=== PATIENT | female | born 1970 | race Two or more races ===

== ENCOUNTER 2018-07-19 09:01 | Outpatient (CLI) | payer BC ==
--- NOTE | 2018-07-19 09:36 | Diagnostic Imaging Report ---
Indication: Cough Comparison: None 2 views of the chest obtained. Findings: There is a vague, confluent density projected over the left upper lung field likely representing atelectasis. Further evaluation of this suggested. Underlying mass not excluded. Heart size is normal. There is some volume loss which shift of the trachea toward the left side. Right lung is clear. Left lung base appears clear. The bones are unremarkable. IMPRESSION: Left upper lobe atelectasis suspected. Underlying mass either involving the lung or the left hilar region is not excluded. Further evaluation is recommended.
[2018-07-19 09:58] LABS: BASOPHILS % (AUTO) 0.8 % (0.0-2.0); EOSINOPHILS % (AUTO) 3.7 % (0.0-3.0); HEMATOCRIT 30.4 % (37.0-47.0); HEMOGLOBIN 9.3 G/DL (12.0-16.0); LYMPHOCYTES % (AUTO) 15.9 % (20.0-45.0); MEAN CORPUSCULAR VOLUME 77 FL (80-99); MONOCYTES % (AUTO) 9.6 % (1.0-10.0); NEUTROPHILS % (AUTO) 69.9 % (45.0-75.0); PLATELET COUNT 464 K/UL (150-450); RED BLOOD COUNT 3.92 M/UL (4.20-5.40); RED CELL DISTRIBUTION WIDTH 13.9 % (11.6-14.8); WHITE BLOOD COUNT 9.8 K/UL (4.8-10.8)
[2018-07-19 10:21] LABS: ALANINE AMINOTRANSFERASE 17 U/L (12-78); ALBUMIN 3.3 G/DL (3.4-5.0); ALBUMIN/GLOBULIN RATIO 0.7 (1.0-2.7); ALKALINE PHOSPHATASE 107 U/L (46-116); ANION GAP 6 mmol/L (5-15); ASPARTATE AMINO TRANSFERASE 30 U/L (15-37); BILIRUBIN,TOTAL 0.5 MG/DL (0.2-1.0); BLOOD UREA NITROGEN 14 mg/dL (7-18); CALCIUM 9.4 MG/DL (8.5-10.1); CARBON DIOXIDE 29 MMOL/L (21-32); CHLORIDE 101 MMOL/L (98-107); CREATININE 0.7 MG/DL (0.55-1.30); POTASSIUM 3.9 MMOL/L (3.5-5.1); SODIUM 136 MMOL/L (136-145)
--- NOTE | 2018-07-19 20:15 | History and Physical Report ---
DATE OF ADMISSION: 07/19/2018 TIME SEEN: 2 p.m. CONSULTANTS: 1. Miguel Winston M.D. 2. Dr. Delgado CHIEF COMPLAINT: Left lung mass and hemoptysis. BRIEF HISTORY: The patient is a 48-year-old female, who lives at home, came to my office yesterday for the first time complaining of slight shortness of breath and coughing intermittently for about 3 to 4 months occasionally with coughing up blood. The patient with slight short of breath, slightly weak, complaining of some weight loss as well. The patient was sent to [place] to get labs done. Chest x-ray subsequently showed a possible left lung mass. The patient was called back to come back to ER to be admitted. The patient was seen here shortly and CAT scan has been done. The patient in the ER currently, slightly short of breath, slightly weak, awaiting admission. REVIEW OF SYSTEMS: No chest pain. Slight short of breath. No nausea, vomiting, or diarrhea. PAST MEDICAL HISTORY: Nothing. PAST SURGICAL HISTORY: None. MEDICATIONS: Nothing. ALLERGIES: Denies. SOCIAL HISTORY: No smoking. No alcohol. No intravenous drug abuse. FAMILY HISTORY: Noncontributory. PHYSICAL EXAMINATION: GENERAL: Calm in bed, slightly weak, oriented x3, no acute distress. VITAL SIGNS: Temperature is 98 degrees, pulse 86, respirations 23, blood pressure 122/76. CARDIOVASCULAR: No murmur. LUNGS: Distant, poor exchange. ABDOMEN: Bowel sounds positive. Nontender. Nondistended. EXTREMITIES: No cyanosis or edema. NEUROLOGIC: Cranial nerves II through XII are grossly intact. Deep tendon reflexes 2+/4. Muscle strength 4/5. LABORATORY AND DIAGNOSTIC DATA: Hemoglobin 9.1, platelets 457, otherwise CBC is normal. BMP show glucose 133. Troponin 0.00. Albumin 3.3, otherwise BMP is normal. D-dimer is 4.26. INR is 1.1. Urinalysis, urine HCG is negative ASSESSMENT: 1. Left lung mass. 2. Shortness of breath. 3. Hemoptysis. 4. Anemia. 5. Weight loss. PLAN: 1. Admit to medical floor. 2. Pain control. 3. O2 and pulmonary treatment as needed. 4. CBC and BMP in the morning. 5. Dr. Winston and Dr. Kiser to consult. 6. We will continue to follow the patient medically. Martín Vera D.O. DR: Giovanni JOB#: [id number] CC:
== END 2018-07-19 11:01 | disposition home or self-care (01) ==
LOC: LAB 09:01
DX: R04.2 Hemoptysis (principal); R91.1 Solitary pulmonary nodule; R06.02 Shortness of breath; D64.9 Anemia, unspecified; R63.4 Abnormal weight loss
CPT/HCPCS: 36415; 71046; 80053; 85025

== ENCOUNTER 2018-07-19 11:22 | Inpatient (IN) | payer BC ==
[~2018-07-19] VITALS: Ht 172.7 cm; Wt 63.0 kg
[2018-07-19 11:40] VITALS: BP 128/72
--- NOTE | 2018-07-19 11:43 | Emergency Room Report ---
History of Present Illness General Chief Complaint: Dyspnea/Respdistress Source: Patient Present Illness HPI Patient presents with complaints of right-sided upper chest and back pain that has been ongoing off and on for the past 2 months Patient has had increased cough as well Reports that she was initially seen and diagnosed with possible asthma Patient had more acute pain to the right upper chest area today associated with some pleurisy x-ray was obtained and patient is reporting that she was told there was a collapsed lung Patient herself denies any fevers or chills denies any vomiting or diarrhea she has had cough off and on over the past several months Denies any recent travel Allergies: Coded Allergies: No Known Allergies (Unverified , 07/19/18) Patient History Past Medical History: see triage record Pertinent Family History: none Last Menstrual Period: 9-11 Now: No Reviewed Nursing Documentation: PMH: Agreed; PSxH: Agreed Nursing Documentation-PMH Past Medical History: No History, Except For Hx Asthma: Yes Review of Systems All Other Systems: negative except mentioned in HPI Physical Exam Vital Signs Date Time Temp Pulse Resp B/P (MAP) Pulse Ox O2 Delivery O2 Flow Rate FiO2 07/19/18 11:23 98.4 89 18 141/81 99 Room Air 98.4 Sp02 EP Interpretation: reviewed, normal General Appearance: well appearing, no apparent distress Head: normocephalic, atraumatic Eyes: bilateral eye PERRL, bilateral eye EOMI ENT: hearing grossly normal, normal pharynx, TMs + canals normal, uvula midline Neck: full range of motion, supple, no meningismus, no bony tend Respiratory: lungs clear, normal breath sounds, no rhonchi, no respiratory distress, no retraction, no accessory muscle use Cardiovascular #1: normal peripheral pulses, regular rate, rhythm, no edema, no gallop, no JVD, no murmur Gastrointestinal: normal bowel sounds, non tender, soft, no mass, no organomegaly, non-distended, no guarding, no hernia, no pulsatile mass, no rebound Genitourinary: no CVA tenderness Musculoskeletal: normal inspection Neurologic: oriented x3, responsive, finance associate III-XII nml as tested, motor strength/ tone normal, sensory intact Psychiatric: mood/affect normal Skin: normal color, no rash, warm/dry, palpation normal Lymphatic: normal inspection, no adenopathy Medical Decision Making Diagnostic Impression: Primary Impression: Dyspnea Additional Impressions: Atelectasis Lung mass ER Course Given the patient's history and findings X-ray imaging was obtained which does reveal significant left-sided collapse and atelectasis This imaging does require to be followed up by CT Dr. Martín Vera was also an emergency room to see the patient she will require further inpatient care and evaluation Labs Test 07/19/18 11:58 07/19/18 13:07 White Blood Count 10.7 K/UL (4.8-10.8) Red Blood Count 3.85 M/UL (4.20-5.40) Hemoglobin 9.1 G/DL (12.0-16.0) Hematocrit 29.7 % (37.0-47.0) Mean Corpuscular Volume 77 FL (80-99) Mean Corpuscular Hemoglobin 23.6 PG (27.0-31.0) Mean Corpuscular Hemoglobin Concent 30.6 G/DL (32.0-36.0) Red Cell Distribution Width 13.6 % (11.6-14.8) Platelet Count 457 K/UL (150-450) Mean Platelet Volume 5.1 FL (6.5-10.1) Neutrophils (%) (Auto) 79.3 % (45.0-75.0) Lymphocytes (%) (Auto) 9.3 % (20.0-45.0) Monocytes (%) (Auto) 8.2 % (1.0-10.0) Eosinophils (%) (Auto) 2.6 % (0.0-3.0) Basophils (%) (Auto) 0.6 % (0.0-2.0) Prothrombin Time 11.4 SEC (9.30-11.50) Prothromb Time International Ratio 1.1 (0.9-1.1) D-Dimer 4.26 mg/L FEU (0.00-0.49) Sodium Level 140 MMOL/L (136-145) Potassium Level 4.0 MMOL/L (3.5-5.1) Chloride Level 103 MMOL/L (98-107) Carbon Dioxide Level 30 MMOL/L (21-32) Anion Gap 7 mmol/L (5-15) Blood Urea Nitrogen 14 mg/dL (7-18) Creatinine 0.7 MG/DL (0.55-1.30) Estimat Glomerular Filtration Rate > 60 mL/min (>60) Glucose Level 133 MG/DL (74-106) Calcium Level 9.4 MG/DL (8.5-10.1) Total Bilirubin 0.4 MG/DL (0.2-1.0) Aspartate Amino Transf (AST/SGOT) 30 U/L (15-37) Alanine Aminotransferase (ALT/SGPT) 21 U/L (12-78) Alkaline Phosphatase 101 U/L (46-116) Total Creatine Kinase 49 U/L (26-308) Creatine Kinase MB 0.5 NG/ML (0.0-3.6) Creatine Kinase MB Relative Index 1.0 Troponin I 0.000 ng/mL (0.000-0.056) Total Protein 8.0 G/DL (6.4-8.2) Albumin 3.3 G/DL (3.4-5.0) Globulin 4.7 g/dL Albumin/Globulin Ratio 0.7 (1.0-2.7) Urine HCG, Qualitative Negative (NEGATIVE) Rhythm Strip Diag. Results EP Interpretation: yes Rate: 88 Rhythm: NSR, no PVC's, no ectopy Chest X-Ray Diagnostic Results Chest X-Ray Diagnostic Results : Chest X-Ray Ordered: Yes # of Views/Limited/Complete: 1 View Indication: Shortness of Breath Interpretation: no effusion, no pneumothorax, other - Significant left- sided atelectasis Impression: Other - Left-sided atelectasis Electronically Signed by: Zachary Talley DO CT/MRI/US Diagnostic Results CT/MRI/US Diagnostic Results : Impression CT chestIMPRESSION: Suspicion of a central left perihilar pulmonary mass/adenopathy with endobronchial invasion into the left mainstem bronchus, associated with collapse of the left upper lobe bronchus, atelectasis and consolidation of the left upper lobe. The consolidated lung is indistinguishable from the suspected central left hilar mass. An endobronchial mass is seen within the left mainstem bronchus which may be biopsied under bronchoscopy. This is suggested for further evaluation. Evidence of metastatic neoplasm with multiple lesions within the liver. Large right suprarenal mass probably metastatic disease to the right adrenal gland. This is partially imaged. Cystic lesion adjacent to the tail the pancreas, nonspecific. Partially imaged left renal cysts. Last Vital Signs Date Time Temp Pulse Resp B/P (MAP) Pulse Ox O2 Delivery O2 Flow Rate FiO2 07/19/18 11:23 98.4 89 18 141/81 99 Room Air 98.4 Status: improved Disposition: ADMITTED INPATIENT Condition: Serious Zachary Talley DO Jul 19, 2018 11:43
[2018-07-19] MEDS ORDERED: Isovue-370 150ml vial INJ PRN (12:15)
[2018-07-19 12:27] LABS: ANION GAP 7 mmol/L (5-15); BLOOD UREA NITROGEN 14 mg/dL (7-18); CALCIUM 9.4 MG/DL (8.5-10.1); CARBON DIOXIDE 30 MMOL/L (21-32); CHLORIDE 103 MMOL/L (98-107); CREATININE 0.7 MG/DL (0.55-1.30); SODIUM 140 MMOL/L (136-145)
[2018-07-19 12:30] VITALS: BP 107/71
[2018-07-19 12:41] LABS: ALANINE AMINOTRANSFERASE 21 U/L (12-78); ALBUMIN 3.3 G/DL (3.4-5.0); ALBUMIN/GLOBULIN RATIO 0.7 (1.0-2.7); ALKALINE PHOSPHATASE 101 U/L (46-116); ASPARTATE AMINO TRANSFERASE 30 U/L (15-37); BILIRUBIN,TOTAL 0.4 MG/DL (0.2-1.0); CKMB 0.5 NG/ML (0.0-3.6); CREATINE KINASE 49 U/L (26-308)
[2018-07-19 12:43] LABS: BASOPHILS % (AUTO) 0.6 % (0.0-2.0); EOSINOPHILS % (AUTO) 2.6 % (0.0-3.0); HEMATOCRIT 29.7 % (37.0-47.0); HEMOGLOBIN 9.1 G/DL (12.0-16.0); LYMPHOCYTES % (AUTO) 9.3 % (20.0-45.0); MEAN CORPUSCULAR VOLUME 77 FL (80-99); MONOCYTES % (AUTO) 8.2 % (1.0-10.0); NEUTROPHILS % (AUTO) 79.3 % (45.0-75.0); PLATELET COUNT 457 K/UL (150-450); RED BLOOD COUNT 3.85 M/UL (4.20-5.40); RED CELL DISTRIBUTION WIDTH 13.6 % (11.6-14.8); WHITE BLOOD COUNT 10.7 K/UL (4.8-10.8)
[2018-07-19 12:48] LABS: INR 1.1 (0.9-1.1)
[2018-07-19 13:30] VITALS: BP 122/76
--- NOTE | 2018-07-19 13:59 | Diagnostic Imaging Report ---
Indication: Dyspnea Comparison: Earlier today A single view chest radiograph was obtained. Findings: There is no change. There is a vague density projected over the left hemithorax probably atelectasis. There is volume loss with slight shift of the trachea toward the left and slight elevation of left hemidiaphragm. IMPRESSION: Suspected atelectasis of the left upper lobe. Underlying mass not excluded.
[2018-07-19] MEDS ORDERED: Albuterol/Ipratropium 3ml neb HHN PRN (15:45)
[2018-07-19] MEDS ORDERED: Isovue-300 100ml vial INJ PRN (15:45)
[2018-07-19] MEDS ORDERED: Miralax 17gm pkt ORAL PRN (15:45)
[2018-07-19] MEDS ORDERED: LORazepam Inj 2mg/ml 1ml IV PRN (15:45)
[2018-07-19] MEDS ORDERED: Morphine Sulfate 4mg/ml Inj (IV USE ONLY) IVP PRN (15:45)
--- NOTE | 2018-07-19 15:45 | Diagnostic Imaging Report ---
Indication: Abnormal chest x-ray. Cough and shortness of breath Technique: Continuous helical transaxial imaging of the chest was obtained from the thoracic inlet to the upper abdomen during rapid intravenous contrast administration. Arterial phase of enhancement obtained. Coronal 2-D reformats were also obtained and maximum intensity projection images in multiple planes. Study obtained in a Siemens sensation [address] Automatic Exposure Control was utilized. Total Dose length Product (DLP): 756.[address] Dose Index Volume (CTDIvol): 22.41 mGy Comparison: None Findings: There is dense organized consolidation involving the left upper lobe. Branches of the pulmonary artery and branches of the pulmonary vein are demonstrated throughout the consolidated segment. More centrally there is a masslike opacity in the area of the left hilum. There is clearly evidence of an endobronchial mass within the left mainstem bronchus (best demonstrated on series 11 coronal sequence image 39-40). The left upper lobe bronchus is completely collapsed. Suspect endobronchial tumor and adjacent perihilar malignancy which is difficult to distinguish from the organized left upper lobe atelectasis and consolidation. Recommend bronchoscopy as this may provide the diagnosis most readily. There is also suggestion of adenopathy in the pretracheal region of the mediastinum. Would not suggest obtaining percutaneous CT biopsy as it is not possible to distinguish consolidated lung from tumor on this examination. Furthermore, the tumor is probably likely central in the left hilum which is not accessible due to the far distance and presence of hilar vessels. There is a net volume loss with elevation of the left hemidiaphragm and deviation of the trachea/mediastinum/heart toward the left side. There is evidence of metastatic neoplasm involving the liver with multiple fairly large enhancing tumors demonstrated within both lobes. There is a large mass in the suprahilar aspect of the right kidney. The mass is incompletely assessed on this examination and measures about 8 x 4 cm. This may be adenopathy or an adrenal mass, possibly metastatic, involving this region. In terms of the pulmonary artery, there is marked extrinsic compression and consequent narrowing of lobar and segmental branches of the left pulmonary artery trunk extending into both upper and lower lobes. There are no lung nodules identified. There are cystic foci within the left upper quadrant abdomen associated with the visualized part of the kidney. There is also prominent cyst anterior to the tail the pancreas measuring about 5.4 cm. These are all only partially imaged on the current study. The osseous structures are grossly unremarkable. IMPRESSION: Suspicion of a central left perihilar pulmonary mass/adenopathy with endobronchial invasion into the left mainstem bronchus, associated with collapse of the left upper lobe bronchus, atelectasis and consolidation of the left upper lobe. The consolidated lung is indistinguishable from the suspected central left hilar mass. An endobronchial mass is seen within the left mainstem bronchus which may be biopsied under bronchoscopy. This is suggested for further evaluation. Evidence of metastatic neoplasm with multiple lesions within the liver. Large right suprarenal mass probably metastatic disease to the right adrenal gland. This is partially imaged. Cystic lesion adjacent to the tail the pancreas, nonspecific. Partially imaged left renal cysts. Critical value communication. Findings were discussed via telephone with Dr. Grace in the emergency department. At 3:00 PM, 07/19/[address] scanner at [facility] is accredited by the [employer] and the scans are performed using dose optimization techniques as appropriate to a performed exam including Automatic Exposure control.
[2018-07-19] MEDS ORDERED: Vancomycin 1250mg/D5W 250ml IVPB SCH (17:00)
--- NOTE | 2018-07-19 20:15 | History and Physical Report ---
DATE OF ADMISSION: 07/19/2018 TIME SEEN: 2 p.m. CONSULTANTS: 1. Miguel Winston M.D. 2. Dr. Delgado CHIEF COMPLAINT: Left lung mass and hemoptysis. BRIEF HISTORY: The patient is a 48-year-old female, who lives at home, came to my office yesterday for the first time complaining of slight shortness of breath and coughing intermittently for about 3 to 4 months occasionally with coughing up blood. The patient with slight short of breath, slightly weak, complaining of some weight loss as well. The patient was sent to [place] to get labs done. Chest x-ray subsequently showed a possible left lung mass. The patient was called back to come back to ER to be admitted. The patient was seen here shortly and CAT scan has been done. The patient in the ER currently, slightly short of breath, slightly weak, awaiting admission. REVIEW OF SYSTEMS: No chest pain. Slight short of breath. No nausea, vomiting, or diarrhea. PAST MEDICAL HISTORY: Nothing. PAST SURGICAL HISTORY: None. MEDICATIONS: Nothing. ALLERGIES: Denies. SOCIAL HISTORY: No smoking. No alcohol. No intravenous drug abuse. FAMILY HISTORY: Noncontributory. PHYSICAL EXAMINATION: GENERAL: Calm in bed, slightly weak, oriented x3, no acute distress. VITAL SIGNS: Temperature is 98 degrees, pulse 86, respirations 23, blood pressure 122/76. CARDIOVASCULAR: No murmur. LUNGS: Distant, poor exchange. ABDOMEN: Bowel sounds positive. Nontender. Nondistended. EXTREMITIES: No cyanosis or edema. NEUROLOGIC: Cranial nerves II through XII are grossly intact. Deep tendon reflexes 2+/4. Muscle strength 4/5. LABORATORY AND DIAGNOSTIC DATA: Hemoglobin 9.1, platelets 457, otherwise CBC is normal. BMP show glucose 133. Troponin 0.00. Albumin 3.3, otherwise BMP is normal. D-dimer is 4.26. INR is 1.1. Urinalysis, urine HCG is negative ASSESSMENT: 1. Left lung mass. 2. Shortness of breath. 3. Hemoptysis. 4. Anemia. 5. Weight loss. PLAN: 1. Admit to medical floor. 2. Pain control. 3. O2 and pulmonary treatment as needed. 4. CBC and BMP in the morning. 5. Dr. Winston and Dr. Kiser to consult. 6. We will continue to follow the patient medically. Martín Vera D.O. DR: Giovanni JOB#: [id number] CC: JESSICA
[2018-07-19 21:00] VITALS: BP 113/68
[2018-07-19] MEDS ORDERED: Cefepime HCl 2 GM in D5W 110 ML IV SCH (21:00)
[2018-07-19] MEDS: Heparin 5000 units/ml inj SUBQ SCH (21:10)
[2018-07-19] MEDS ORDERED: Vancomycin 1 GM in D5W 275 ML IV SCH (23:00)
[2018-07-20] MEDS ORDERED: Vancomycin 750mg/NS 250ml IVPB SCH (01:00)
[2018-07-20 04:59] VITALS: BP 111/72
[2018-07-20 06:14] LABS: EOSINOPHILS % (AUTO) 4.3 % (0.0-3.0); HEMATOCRIT 28.1 % (37.0-47.0); HEMOGLOBIN 8.8 G/DL (12.0-16.0); MEAN CORPUSCULAR VOLUME 77 FL (80-99); MONOCYTES % (AUTO) 10.7 % (1.0-10.0); PLATELET COUNT 428 K/UL (150-450); RED BLOOD COUNT 3.64 M/UL (4.20-5.40); RED CELL DISTRIBUTION WIDTH 13.5 % (11.6-14.8); WHITE BLOOD COUNT 7.9 K/UL (4.8-10.8)
[2018-07-20 06:27] LABS: ANION GAP 6 mmol/L (5-15); BLOOD UREA NITROGEN 12 mg/dL (7-18); CALCIUM 9.3 MG/DL (8.5-10.1); CARBON DIOXIDE 31 MMOL/L (21-32); CHLORIDE 102 MMOL/L (98-107); CREATININE 0.8 MG/DL (0.55-1.30); POTASSIUM 4.3 MMOL/L (3.5-5.1); SODIUM 138 MMOL/L (136-145)
[2018-07-20 06:32] LABS: ANION GAP 5 mmol/L (5-15); BLOOD UREA NITROGEN 12 mg/dL (7-18); CALCIUM 9.2 MG/DL (8.5-10.1); CARBON DIOXIDE 30 MMOL/L (21-32); CHLORIDE 103 MMOL/L (98-107); CREATININE 0.7 MG/DL (0.55-1.30); PHOSPHORUS 3.8 MG/DL (2.5-4.9); POTASSIUM 4.3 MMOL/L (3.5-5.1); SODIUM 138 MMOL/L (136-145)
[2018-07-20 08:00] VITALS: BP 128/79
--- NOTE | 2018-07-20 08:21 | Consultation ---
History of Present Illness General Date patient seen: Jul 20, 2018 Chief Complaint: Dyspnea/Respdistress Reason for Consultation: PNA Present Illness HPI Ms Mansfield is a 48 yo female with PMHx of possible asthma who presented to the ED on 07/19/18 with CP. The patient reports Right sided CP and back pain x 2 months. Has had some cough (No blood) intermittent for the last few months. She went to another MD and was told that she may have asthma or PNA and was treated at that time. The pain did not resolve and she came to the ED. She reports no fever/chill, N/V/D, Dysuria. She does report feeling tired a lot. ID was consulted for PNA PMHx/PSHx Asthma. Anemia SocHx Travel - [facility] 3 years ago No known TB Exposure Denies E/T/D FamHx Mother HTN Allergies: Coded Allergies: No Known Allergies (Unverified , 07/19/18) Patient History Healthcare decision maker Resuscitation status Full Code Advanced Directive on File Review of Systems All Other Systems: negative except mentioned in HPI Physical Exam Last 24 Hour Vital Signs Date Time Temp Pulse Resp B/P (MAP) Pulse Ox O2 Delivery O2 Flow Rate FiO2 07/20/18 08:02 84 16 Room Air 21 07/20/18 06:54 98.6 07/20/18 04:59 98.6 82 18 111/72 (85) 99 98.6 07/19/18 23:21 Room Air 07/19/18 21:00 99.4 93 18 113/68 (83) 99 99.4 07/19/18 19:45 81 16 Room Air 21 07/19/18 16:15 Room Air 07/19/18 15:20 98.8 78 22 131/82 99 Room Air 07/19/18 13:30 86 23 122/76 100 Room Air 07/19/18 12:30 85 22 107/71 07/19/18 11:40 88 16 128/72 100 Room Air 07/19/18 11:40 89 18 Room Air 07/19/18 11:23 98.4 89 18 141/81 99 Room Air 98.4 Intake and Output 07/19/18 07/20/18 19:00 07:00 Intake Total 290 ml 1060.000 ml Output Total 0 ml Balance 290 ml 1060.000 ml Intake Oral 240 ml 300 ml IV Total 50 ml 760.000 ml Output Urine Total 0 ml # Voids 2 Laboratory Tests Test 07/19/18 11:58 07/19/18 13:07 07/20/18 05:25 White Blood Count 10.7 K/UL (4.8-10.8) 7.9 K/UL (4.8-10.8) Red Blood Count 3.85 M/UL (4.20-5.40) L 3.64 M/UL (4.20-5.40) L Hemoglobin 9.1 G/DL (12.0-16.0) L 8.8 G/DL (12.0-16.0) L Hematocrit 29.7 % (37.0-47.0) L 28.1 % (37.0-47.0) L Mean Corpuscular Volume 77 FL (80-99) L 77 FL (80-99) L Mean Corpuscular Hemoglobin 23.6 PG (27.0-31.0) L 24.1 PG (27.0-31.0) L Mean Corpuscular Hemoglobin Concent 30.6 G/DL (32.0-36.0) L 31.3 G/DL (32.0-36.0) L Red Cell Distribution Width 13.6 % (11.6-14.8) 13.5 % (11.6-14.8) Platelet Count 457 K/UL (150-450) H 428 K/UL (150-450) Mean Platelet Volume 5.1 FL (6.5-10.1) L 5.0 FL (6.5-10.1) L Neutrophils (%) (Auto) 79.3 % (45.0-75.0) H 67.0 % (45.0-75.0) Lymphocytes (%) (Auto) 9.3 % (20.0-45.0) L 17.0 % (20.0-45.0) L Monocytes (%) (Auto) 8.2 % (1.0-10.0) 10.7 % (1.0-10.0) H Eosinophils (%) (Auto) 2.6 % (0.0-3.0) 4.3 % (0.0-3.0) H Basophils (%) (Auto) 0.6 % (0.0-2.0) 1.0 % (0.0-2.0) Prothrombin Time 11.4 SEC (9.30-11.50) Prothromb Time International Ratio 1.1 (0.9-1.1) D-Dimer 4.26 mg/L FEU (0.00-0.49) H Sodium Level 140 MMOL/L (136-145) 138 MMOL/L (136-145) Potassium Level 4.0 MMOL/L (3.5-5.1) 4.3 MMOL/L (3.5-5.1) Chloride Level 103 MMOL/L (98-107) 103 MMOL/L (98-107) Carbon Dioxide Level 30 MMOL/L (21-32) 30 MMOL/L (21-32) Anion Gap 7 mmol/L (5-15) 5 mmol/L (5-15) Blood Urea Nitrogen 14 mg/dL (7-18) 12 mg/dL (7-18) Creatinine 0.7 MG/DL (0.55-1.30) 0.7 MG/DL (0.55-1.30) Estimat Glomerular Filtration Rate > 60 mL/min (>60) > 60 mL/min (>60) Glucose Level 133 MG/DL (74-106) H 93 MG/DL (74-106) Calcium Level 9.4 MG/DL (8.5-10.1) 9.2 MG/DL (8.5-10.1) Total Bilirubin 0.4 MG/DL (0.2-1.0) Aspartate Amino Transf (AST/SGOT) 30 U/L (15-37) Alanine Aminotransferase (ALT/SGPT) 21 U/L (12-78) Alkaline Phosphatase 101 U/L (46-116) Total Creatine Kinase 49 U/L (26-308) Creatine Kinase MB 0.5 NG/ML (0.0-3.6) Creatine Kinase MB Relative Index 1.0 Troponin I 0.000 ng/mL (0.000-0.056) Total Protein 8.0 G/DL (6.4-8.2) Albumin 3.3 G/DL (3.4-5.0) L 3.0 G/DL (3.4-5.0) L Globulin 4.7 g/dL Albumin/Globulin Ratio 0.7 (1.0-2.7) L Urine HCG, Qualitative Negative (NEGATIVE) Phosphorus Level 3.8 MG/DL (2.5-4.9) Height (Feet): 5 Height (Inches): 8.00 Weight (Pounds): 140 Medications Current Medications Medications (Trade) Dose Ordered Sig/Madelyn Route PRN Reason Start Time Stop Time Status Last Admin Dose Admin Acetaminophen (Tylenol) 650 mg Q4H PRN ORAL FEVER 07/19/18 15:45 08/18/18 15:44 07/20/18 06:24 Albuterol/ Ipratropium (Albuterol/ Ipratropium) 3 ml Q4H PRN HHN Shortness of Breath 07/19/18 15:45 07/24/18 15:44 Cefepime HCl 2 gm/ Dextrose 110 ml @ 220 mls/hr EVERY 12 HOURS IV 07/19/18 21:00 07/26/18 20:59 07/19/18 21:10 Dextrose (Dextrose 50%) 25 ml Q1H PRN IV Hypoglycemia 07/19/18 15:45 08/18/18 15:44 Dextrose (Dextrose 50%) 50 ml Q1H PRN IV Hypoglycemia 07/19/18 16:00 08/18/18 15:59 Heparin Sodium (Porcine) (Heparin 5000 units/ml) 5,000 units EVERY 12 HOURS SUBQ 07/19/18 21:00 08/18/18 20:59 07/19/18 21:10 Lorazepam (Ativan 2mg/ml 1ml) 2 mg Q2H PRN IV For Anxiety 07/19/18 15:45 07/26/18 15:44 Morphine Sulfate (Morphine Sulfate) 4 mg Q4H PRN IVP Severe Pain (Pain Scale 7-10) 07/19/18 15:45 07/26/18 15:44 Ondansetron HCl (Zofran) 4 mg Q6H PRN IVP Nausea & Vomiting 07/19/18 15:45 08/18/18 15:44 Polyethylene Glycol (Miralax) 17 gm DAILYPRN PRN ORAL Constipation 07/19/18 15:45 08/18/18 15:44 Sodium Chloride 1,000 ml @ 50 mls/hr Q20H IV 07/19/18 15:42 08/18/18 15:41 07/19/18 17:09 Vancomycin HCl (Vanco rx to dose) 1 ea DAILY PRN MISC per rx protocol 07/19/18 16:00 08/18/18 15:59 Vancomycin/Sodium Chloride 250 ml @ 166.667 mls/hr Q8H IVPB 07/20/18 01:00 07/25/18 00:59 07/20/18 01:08 Objective Narrative Gen: NAD, well appearing, alert HEENT: NCAT, MMM, EOMI, PERRL, No Oral lesion, no scleral icterus NECK: full range of motion, supple, no meningismus, No LAD, No JVD LUNGS: CTAB, No W/C, No Accessory muscle use CARDS: RRR, S1, S2, No M/R/G ABD: Soft, NT, ND, No R/G, + BS, No HSM, No Masses : Deferred Ext: C/C/E, Pulses 2+ B/L (DP, Rad), Right foot with healing ulceration and minimal surrounding erythema. NEURO: A/O x 4, Strength and Sensation Grossly intact PSYCH: mood/affect normal SKIN: warm/dry, No rashes, Assessment/Plan Assessment/Plan Lung Nodules and consolidation Most probably Cancer. May have some component of post obstructive PNA but not likely Findings no consistent with TB or other infection 07/19/18 CTA Chest - Suspicion of a central left perihilar pulmonary mass/ adenopathy with endobronchial invasion into the left mainstem bronchus, associated with collapse of the left uppe lobe bronchus, atelectasis and consolidation of the left upper lobe. Evidence of metastatic neoplasm with multiple lesions within the liver. Large right suprarenal mass probably metastatic disease to the right adrenal gland. Hx of asthma Anemia PLAN: - D/C Vancomycin and Cefepime - Start Azithromycin and Ceftriaxone for possible obstructive PNA - Needs Bx of lesion to evaluate for malignancy vs less likely infectious process. - Supportive care Thank you for this consult. We will continue to follow the patient during this hospitalization. Rodo Adkins MD Jul 20, 2018 08:21
[2018-07-20] MEDS ORDERED: Azithromycin 250mg tab ORAL SCH (08:29)
[2018-07-20] MEDS: Heparin 5000 units/ml inj SUBQ SCH ×2 (09:16→21:04)
--- NOTE | 2018-07-20 09:16 | General Progress Note ---
Assessment/Plan Problem List: (1) Lung mass ICD Codes: R91.8 - Other nonspecific abnormal finding of lung field SNOMED: 068019804 (2) Anemia ICD Codes: D64.9 - Anemia, unspecified SNOMED: 633968429 (3) SOB (shortness of breath) ICD Codes: R06.02 - Shortness of breath SNOMED: 206220416 (4) Weak ICD Codes: R53.1 - Weakness SNOMED: 47298332 (5) Hemoptysis ICD Codes: R04.2 - Hemoptysis SNOMED: 39725929 (6) Atelectasis ICD Codes: J98.11 - Atelectasis SNOMED: 60127665 (7) Dyspnea ICD Codes: R06.00 - Dyspnea, unspecified SNOMED: 232386718 Status: unchanged Assessment/Plan o2 pulm tx diet f/u cbc bmp am heme pulm f/u Subjective Constitutional: Reports: weakness Respiratory: Reports: shortness of breath Allergies: Coded Allergies: No Known Allergies (Unverified , 07/19/18) All Systems: reviewed and negative except above Subjective calm in bed Objective Last 24 Hour Vital Signs Date Time Temp Pulse Resp B/P (MAP) Pulse Ox O2 Delivery O2 Flow Rate FiO2 07/20/18 08:02 84 16 Room Air 21 07/20/18 08:00 98.0 76 20 128/79 (95) 99 98.0 07/20/18 06:54 98.6 07/20/18 04:59 98.6 82 18 111/72 (85) 99 98.6 07/19/18 23:21 Room Air 07/19/18 21:00 99.4 93 18 113/68 (83) 99 99.4 07/19/18 19:45 81 16 Room Air 21 07/19/18 16:15 Room Air 07/19/18 15:20 98.8 78 22 131/82 99 Room Air 07/19/18 13:30 86 23 122/76 100 Room Air 07/19/18 12:30 85 22 107/71 07/19/18 11:40 88 16 128/72 100 Room Air 07/19/18 11:40 89 18 Room Air 07/19/18 11:23 98.4 89 18 141/81 99 Room Air 98.4 Intake and Output 07/19/18 07/20/18 19:00 07:00 Intake Total 290 ml 1060.000 ml Output Total 0 ml Balance 290 ml 1060.000 ml Intake Oral 240 ml 300 ml IV Total 50 ml 760.000 ml Output Urine Total 0 ml # Voids 2 Laboratory Tests 07/19/18 11:58: White Blood Count 10.7, Red Blood Count 3.85L, Hemoglobin 9.1L, Hematocrit 29.7L , Mean Corpuscular Volume 77L, Mean Corpuscular Hemoglobin 23.6L, Mean Corpuscular Hemoglobin Concent 30.6L, Red Cell Distribution Width 13.6, Platelet Count 457H, Mean Platelet Volume 5.1L, Neutrophils (%) (Auto) 79.3H, Lymphocytes (%) (Auto) 9.3L, Monocytes (%) (Auto) 8.2, Eosinophils (%) (Auto) 2.6, Basophils (%) (Auto) 0.6, Prothrombin Time 11.4, Prothromb Time International Ratio 1.1, D-Dimer 4.26H, Sodium Level 140, Potassium Level 4.0, Chloride Level 103, Carbon Dioxide Level 30, Anion Gap 7, Blood Urea Nitrogen 14 , Creatinine 0.7, Estimat Glomerular Filtration Rate > 60, Glucose Level 133H, Calcium Level 9.4, Total Bilirubin 0.4, Aspartate Amino Transf (AST/SGOT) 30, Alanine Aminotransferase (ALT/SGPT) 21, Alkaline Phosphatase 101, Total Creatine Kinase 49, Creatine Kinase MB 0.5, Creatine Kinase MB Relative Index 1.0, Troponin I 0.000, Total Protein 8.0, Albumin 3.3L, Globulin 4.7, Albumin/ Globulin Ratio 0.7L 07/19/18 13:07: Urine HCG, Qualitative Negative 07/20/18 05:25: White Blood Count 7.9, Red Blood Count 3.64L, Hemoglobin 8.8L, Hematocrit 28.1L , Mean Corpuscular Volume 77L, Mean Corpuscular Hemoglobin 24.1L, Mean Corpuscular Hemoglobin Concent 31.3L, Red Cell Distribution Width 13.5, Platelet Count 428, Mean Platelet Volume 5.0L, Neutrophils (%) (Auto) 67.0, Lymphocytes (%) (Auto) 17.0L, Monocytes (%) (Auto) 10.7H, Eosinophils (%) (Auto ) 4.3H, Basophils (%) (Auto) 1.0, Sodium Level 138, Potassium Level 4.3, Chloride Level 103, Carbon Dioxide Level 30, Anion Gap 5, Blood Urea Nitrogen 12 , Creatinine 0.7, Estimat Glomerular Filtration Rate > 60, Glucose Level 93, Calcium Level 9.2, Albumin 3.0L, Phosphorus Level 3.8 Height (Feet): 5 Height (Inches): 8.00 Weight (Pounds): 140 General Appearance: alert EENT: normal ENT inspection Neck: normal alignment Cardiovascular: normal peripheral pulses, normal rate, regular rhythm Respiratory/Chest: chest wall non-tender, decreased breath sounds Abdomen: normal bowel sounds, non tender, soft Extremities: normal range of motion Edema: no edema noted Arm (L), no edema noted Arm (R), no edema noted Leg (L), no edema noted Leg (R), no edema noted Pedal (L), no edema noted Pedal (R), no edema noted Generalized Neurologic: responsive, motor weakness Skin: normal pigmentation, warm/dry Martín Vera DO Jul 20, 2018 09:16
[2018-07-20] MEDS: cefTRIAXone 1 GM in D5W 55 ML IVPB SCH (10:00)
[2018-07-20] MEDS ORDERED: Promethazine/Codeine 5ml UD ORAL PRN (11:45)
[2018-07-20] MEDS ORDERED: Lidocaine 1% Plain 30 ml INJ PRN (11:45)
--- NOTE | 2018-07-20 11:49 | Consultation ---
History of Present Illness General Date patient seen: Jul 20, 2018 Time patient seen: 10:00 Chief Complaint: Dyspnea/Respdistress Referring physician: dr Vera Reason for Consultation: lung mass Present Illness HPI 48 y/old female with history of intermittent asthma and anemia , presented to emergency department with complaint of right-sided chest pain and back pain for last 2 months. Patient reported cough with expectoration of white colored sputum and occasional specks of blood. Chest pain associated with cough and radiates to the back. She denied fever and chills. She denied abdominal pain, blood in stool, n/v/diarrhea. No history of smoking. Upon evaluation laboratory workup revealed no leukocytosis, hemoglobin 9.1 hematocrit 29.7. Troponin negative. EKG revealed normal sinus rhythm, no acute ischemic changes, CXR with suspected atelectasis of the left upper lobe. Underlying mass was not excluded. Subsequently CT of the chest was done and revealed suspicion of a central left perihilar pulmonary mass/adenopathy with endobronchial invasion into the left mainstem bronchus, associated with collapse of the left upper lobe bronchus, atelectasis and consolidation of the left upper lobe. The consolidated lung is indistinguishable from the suspected central left hilar mass. Endobronchial mass seen within the left mainstem bronchus which may be biopsied under bronchoscopy. . Evidence of metastatic neoplasm with multiple lesions within the liver. Large right suprarenal mass probably metastatic disease to the right adrenal gland. Cystic lesion adjacent to the tail the pancreas, nonspecific. Patient was admitted for further workup Allergies: Coded Allergies: No Known Allergies (Unverified , 07/19/18) Patient History Healthcare decision maker Resuscitation status Full Code Advanced Directive on File Review of Systems Constitutional: Reports: weakness Eye: Reports: no symptoms ENT: Reports: no symptoms Respiratory: Reports: see HPI Cardiovascular: Reports: chest pain - R sided chest pain with cough Gastrointestinal: Reports: no symptoms Genitourinary: Reports: no symptoms Skin: Reports: no symptoms Psychiatric: Reports: no symptoms Neurological: Reports: no symptoms Endocrine: Reports: no symptoms Hematologic/Lymphatic: Reports: anemia Physical Exam General Appearance: no apparent distress, other - A/A/O x 3 female in no apparemt distress Lines, tubes and drains: peripheral HEENT: normocephalic, atraumatic, anicteric Neck: non-tender, supple Respiratory/Chest: no respiratory distress, expiratory wheezing - anterior: upper lobes bolaterally, posterior -throughout Cardiovascular/Chest: normal rate, no JVD Abdomen: normal bowel sounds, non tender, soft Extremities: normal range of motion, non-tender 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, no motor/sensory deficits, alert Musculoskeletal: normal muscle bulk Last 24 Hour Vital Signs Date Time Temp Pulse Resp B/P (MAP) Pulse Ox O2 Delivery O2 Flow Rate FiO2 07/20/18 09:00 Room Air 07/20/18 08:02 84 16 Room Air 21 07/20/18 08:00 98.0 76 20 128/79 (95) 99 98.0 07/20/18 06:54 98.6 07/20/18 04:59 98.6 82 18 111/72 (85) 99 98.6 07/19/18 23:21 Room Air 07/19/18 21:00 99.4 93 18 113/68 (83) 99 99.4 07/19/18 19:45 81 16 Room Air 07/19/18 16:15 Room Air 07/19/18 15:20 98.8 78 22 131/82 99 Room Air 07/19/18 13:30 86 23 122/76 100 Room Air 07/19/18 12:30 85 22 107/71 Intake and Output 07/19/18 07/20/18 19:00 07:00 Intake Total 290 ml 1110.000 ml Output Total 0 ml Balance 290 ml 1110.000 ml Intake Oral 240 ml 300 ml IV Total 50 ml 810.000 ml Output Urine Total 0 ml # Voids 2 Laboratory Tests Test 07/19/18 11:58 07/19/18 13:07 07/20/18 05:25 White Blood Count 10.7 K/UL (4.8-10.8) 7.9 K/UL (4.8-10.8) Red Blood Count 3.85 M/UL (4.20-5.40) L 3.64 M/UL (4.20-5.40) L Hemoglobin 9.1 G/DL (12.0-16.0) L 8.8 G/DL (12.0-16.0) L Hematocrit 29.7 % (37.0-47.0) L 28.1 % (37.0-47.0) L Mean Corpuscular Volume 77 FL (80-99) L 77 FL (80-99) L Mean Corpuscular Hemoglobin 23.6 PG (27.0-31.0) L 24.1 PG (27.0-31.0) L Mean Corpuscular Hemoglobin Concent 30.6 G/DL (32.0-36.0) L 31.3 G/DL (32.0-36.0) L Red Cell Distribution Width 13.6 % (11.6-14.8) 13.5 % (11.6-14.8) Platelet Count 457 K/UL (150-450) H 428 K/UL (150-450) Mean Platelet Volume 5.1 FL (6.5-10.1) L 5.0 FL (6.5-10.1) L Neutrophils (%) (Auto) 79.3 % (45.0-75.0) H 67.0 % (45.0-75.0) Lymphocytes (%) (Auto) 9.3 % (20.0-45.0) L 17.0 % (20.0-45.0) L Monocytes (%) (Auto) 8.2 % (1.0-10.0) 10.7 % (1.0-10.0) H Eosinophils (%) (Auto) 2.6 % (0.0-3.0) 4.3 % (0.0-3.0) H Basophils (%) (Auto) 0.6 % (0.0-2.0) 1.0 % (0.0-2.0) Prothrombin Time 11.4 SEC (9.30-11.50) Prothromb Time International Ratio 1.1 (0.9-1.1) D-Dimer 4.26 mg/L FEU (0.00-0.49) H Sodium Level 140 MMOL/L (136-145) 138 MMOL/L (136-145) Potassium Level 4.0 MMOL/L (3.5-5.1) 4.3 MMOL/L (3.5-5.1) Chloride Level 103 MMOL/L (98-107) 103 MMOL/L (98-107) Carbon Dioxide Level 30 MMOL/L (21-32) 30 MMOL/L (21-32) Anion Gap 7 mmol/L (5-15) 5 mmol/L (5-15) Blood Urea Nitrogen 14 mg/dL (7-18) 12 mg/dL (7-18) Creatinine 0.7 MG/DL (0.55-1.30) 0.7 MG/DL (0.55-1.30) Estimat Glomerular Filtration Rate > 60 mL/min (>60) > 60 mL/min (>60) Glucose Level 133 MG/DL (74-106) H 93 MG/DL (74-106) Calcium Level 9.4 MG/DL (8.5-10.1) 9.2 MG/DL (8.5-10.1) Total Bilirubin 0.4 MG/DL (0.2-1.0) Aspartate Amino Transf (AST/SGOT) 30 U/L (15-37) Alanine Aminotransferase (ALT/SGPT) 21 U/L (12-78) Alkaline Phosphatase 101 U/L (46-116) Total Creatine Kinase 49 U/L (26-308) Creatine Kinase MB 0.5 NG/ML (0.0-3.6) Creatine Kinase MB Relative Index 1.0 Troponin I 0.000 ng/mL (0.000-0.056) Total Protein 8.0 G/DL (6.4-8.2) Albumin 3.3 G/DL (3.4-5.0) L 3.0 G/DL (3.4-5.0) L Globulin 4.7 g/dL Albumin/Globulin Ratio 0.7 (1.0-2.7) L Urine HCG, Qualitative Negative (NEGATIVE) Phosphorus Level 3.8 MG/DL (2.5-4.9) Height (Feet): 5 Height (Inches): 8.00 Weight (Pounds): 140 Medications Current Medications Medications (Trade) Dose Ordered Sig/Madelyn Route PRN Reason Start Time Stop Time Status Last Admin Dose Admin Acetaminophen (Tylenol) 650 mg Q4H PRN ORAL FEVER 07/19/18 15:45 08/18/18 15:44 07/20/18 06:24 Albuterol/ Ipratropium (Albuterol/ Ipratropium) 3 ml Q4H PRN HHN Shortness of Breath 07/19/18 15:45 07/24/18 15:44 Azithromycin (Zithromax) 250 mg DAILY ORAL 07/21/18 09:00 07/25/18 08:59 Ceftriaxone Sodium 1 gm/ Dextrose 55 ml @ 110 mls/hr Q24H IVPB 07/20/18 09:00 07/25/18 08:59 07/20/18 10:00 Dextrose (Dextrose 50%) 25 ml Q1H PRN IV Hypoglycemia 07/19/18 15:45 08/18/18 15:44 Dextrose (Dextrose 50%) 50 ml Q1H PRN IV Hypoglycemia 07/19/18 16:00 08/18/18 15:59 Heparin Sodium (Porcine) (Heparin 5000 units/ml) 5,000 units EVERY 12 HOURS SUBQ 07/19/18 21:00 08/18/18 20:59 07/20/18 09:16 Lorazepam (Ativan 2mg/ml 1ml) 2 mg Q2H PRN IV For Anxiety 07/19/18 15:45 07/26/18 15:44 Morphine Sulfate (Morphine Sulfate) 4 mg Q4H PRN IVP Severe Pain (Pain Scale 7-10) 07/19/18 15:45 07/26/18 15:44 Ondansetron HCl (Zofran) 4 mg Q6H PRN IVP Nausea & Vomiting 07/19/18 15:45 08/18/18 15:44 Polyethylene Glycol (Miralax) 17 gm DAILYPRN PRN ORAL Constipation 07/19/18 15:45 08/18/18 15:44 Sodium Chloride 1,000 ml @ 50 mls/hr Q20H IV 07/19/18 15:42 08/18/18 15:41 07/19/18 17:09 Assessment/Plan Status Narrative ASSESSMENT Left perihilar lung mass , probably malignant with evidence of liver and adrenal gland metastasis Possible obstructive pneumonia Pleuritic chest pain Asthma Anemia Positive D-dimer PLAN OF CARE Med Surg floor O2 to keep pulse ox above 92% pulmonary toilet with bronchodilator ATC + PRN add HHN with inhaled steroids/Budesonide bid empiric antibiotics for possible obstructive PNA ID follows sputum culture antitussive prn possible obstructive pneumonia CT-guided biopsy of lung mass Cancer tumor marker CEA and AFP consider oncology eval- per PMD discretion monitor H&H with goal to keep hemoglobin above 7, anemia w/up, stool OB venous duplex BLE D dimer could be elevated due to malignancy pain management DVT prophylaxis supportive care case discussed and evaluated by supervising physician Carola Warren NP Jul 20, 2018 11:49
[2018-07-20 12:00] VITALS: BP 120/81
[2018-07-20] MEDS: Albuterol/Ipratropium 3ml neb HHN SCH ×2 (12:52→19:23)
[2018-07-20 16:00] VITALS: BP 121/84
--- NOTE | 2018-07-20 16:49 | Consultation ---
Consult Note Consult Note Oncology Consult Date patient seen: Jul 20, 2018 Chief Complaint: Dyspnea/Respdistress Referring physician: dr Vera Reason for Consultation: lung mass stage iv likely lung cancer HPI 48 y/old female with history of intermittent asthma and anemia , presented to emergency department with complaint of right-sided chest pain and back pain for last 2 months. Patient reported cough with expectoration of white colored sputum and occasional specks of blood. Chest pain associated with cough and radiates to the back. She denied fever and chills. She denied abdominal pain, blood in stool, n/v/diarrhea. No history of smoking. Upon evaluation laboratory workup revealed no leukocytosis, hemoglobin 9.1 hematocrit 29.7. CXR with suspected atelectasis of the left upper lobe. Underlying mass was not excluded. Subsequently CT of the chest was done and revealed suspicion of a central left perihilar pulmonary mass/adenopathy with endobronchial invasion into the left mainstem bronchus, associated with collapse of the left upper lobe bronchus, atelectasis and consolidation of the left upper lobe. The consolidated lung is indistinguishable from the suspected central left hilar mass. Endobronchial mass seen within the left mainstem bronchus which may be biopsied under bronchoscopy. . Evidence of metastatic neoplasm with multiple lesions within the liver. Large right suprarenal mass probably metastatic disease to the right adrenal gland. Cystic lesion adjacent to the tail the pancreas, nonspecific. Patient was admitted for further workup. Oncology consulted for further eval. Allergies: Coded Allergies: No Known Allergies (Unverified , 07/19/18) Patient History Healthcare decision maker Resuscitation status Full Code Advanced Directive on File Review of Systems Constitutional: Reports: weakness Eye: Reports: no symptoms ENT: Reports: no symptoms Respiratory: Reports: see HPI Cardiovascular: Reports: chest pain - R sided chest pain with cough Gastrointestinal: Reports: no symptoms Genitourinary: Reports: no symptoms Skin: Reports: no symptoms Psychiatric: Reports: no symptoms Neurological: Reports: no symptoms Endocrine: Reports: no symptoms Hematologic/Lymphatic: Reports: anemia Physical Exam General Appearance: no apparent distress Lines, tubes and drains: peripheral HEENT: normocephalic, atraumati Neck: non-tender, supple Respiratory/Chest: no respiratory distress anterior: upper lobes bolaterally, posterior -throughout Cardiovascular/Chest: normal rate, no JVD Abdomen: normal bowel sounds Extremities: normal range of motion 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 Musculoskeletal: normal muscle bulk Last 24 Hour Vital Signs Date Time Temp Pulse Resp B/P (MAP) Pulse Ox O2 Delivery O2 Flow Rate FiO2 07/20/18 09:00 Room Air 07/20/18 08:02 84 16 Room Air 21 07/20/18 08:00 98.0 76 20 128/79 (95) 99 98.0 07/20/18 06:54 98.6 07/20/18 04:59 98.6 82 18 111/72 (85) 99 98.6 07/19/18 23:21 Room Air 07/19/18 21:00 99.4 93 18 113/68 (83) 99 99.4 07/19/18 19:45 81 16 Room Air 07/19/18 16:15 Room Air 07/19/18 15:20 98.8 78 22 131/82 99 Room Air 07/19/18 13:30 86 23 122/76 100 Room Air 07/19/18 12:30 85 22 107/71 Intake and Output 07/19/18 07/20/18 19:00 07:00 Intake Total 290 ml 1110.000 ml Output Total 0 ml Balance 290 ml 1110.000 ml Intake Oral 240 ml 300 ml IV Total 50 ml 810.000 ml Output Urine Total 0 ml # Voids 2 Laboratory Tests Test 07/19/18 11:58 07/19/18 13:07 07/20/18 05:25 White Blood Count 10.7 K/UL (4.8-10.8) 7.9 K/UL (4.8-10.8) Red Blood Count 3.85 M/UL (4.20-5.40) L 3.64 M/UL (4.20-5.40) L Hemoglobin 9.1 G/DL (12.0-16.0) L 8.8 G/DL (12.0-16.0) L Hematocrit 29.7 % (37.0-47.0) L 28.1 % (37.0-47.0) L Mean Corpuscular Volume 77 FL (80-99) L 77 FL (80-99) L Mean Corpuscular Hemoglobin 23.6 PG (27.0-31.0) L 24.1 PG (27.0-31.0) L Mean Corpuscular Hemoglobin Concent 30.6 G/DL (32.0-36.0) L 31.3 G/DL (32.0-36.0) L Red Cell Distribution Width 13.6 % (11.6-14.8) 13.5 % (11.6-14.8) Platelet Count 457 K/UL (150-450) H 428 K/UL (150-450) Mean Platelet Volume 5.1 FL (6.5-10.1) L 5.0 FL (6.5-10.1) L Neutrophils (%) (Auto) 79.3 % (45.0-75.0) H 67.0 % (45.0-75.0) Lymphocytes (%) (Auto) 9.3 % (20.0-45.0) L 17.0 % (20.0-45.0) L Monocytes (%) (Auto) 8.2 % (1.0-10.0) 10.7 % (1.0-10.0) H Eosinophils (%) (Auto) 2.6 % (0.0-3.0) 4.3 % (0.0-3.0) H Basophils (%) (Auto) 0.6 % (0.0-2.0) 1.0 % (0.0-2.0) Prothrombin Time 11.4 SEC (9.30-11.50) Prothromb Time International Ratio 1.1 (0.9-1.1) D-Dimer 4.26 mg/L FEU (0.00-0.49) H Sodium Level 140 MMOL/L (136-145) 138 MMOL/L (136-145) Potassium Level 4.0 MMOL/L (3.5-5.1) 4.3 MMOL/L (3.5-5.1) Chloride Level 103 MMOL/L (98-107) 103 MMOL/L (98-107) Carbon Dioxide Level 30 MMOL/L (21-32) 30 MMOL/L (21-32) Anion Gap 7 mmol/L (5-15) 5 mmol/L (5-15) Blood Urea Nitrogen 14 mg/dL (7-18) 12 mg/dL (7-18) Creatinine 0.7 MG/DL (0.55-1.30) 0.7 MG/DL (0.55-1.30) Estimat Glomerular Filtration Rate > 60 mL/min (>60) > 60 mL/min (>60) Glucose Level 133 MG/DL (74-106) H 93 MG/DL (74-106) Calcium Level 9.4 MG/DL (8.5-10.1) 9.2 MG/DL (8.5-10.1) Total Bilirubin 0.4 MG/DL (0.2-1.0) Aspartate Amino Transf (AST/SGOT) 30 U/L (15-37) Alanine Aminotransferase (ALT/SGPT) 21 U/L (12-78) Alkaline Phosphatase 101 U/L (46-116) Total Creatine Kinase 49 U/L (26-308) Creatine Kinase MB 0.5 NG/ML (0.0-3.6) Creatine Kinase MB Relative Index 1.0 Troponin I 0.000 ng/mL (0.000-0.056) Total Protein 8.0 G/DL (6.4-8.2) Albumin 3.3 G/DL (3.4-5.0) L 3.0 G/DL (3.4-5.0) L Globulin 4.7 g/dL Albumin/Globulin Ratio 0.7 (1.0-2.7) L Urine HCG, Qualitative Negative (NEGATIVE) Phosphorus Level 3.8 MG/DL (2.5-4.9) Current Medications Medications (Trade) Dose Ordered Sig/Madelyn Route PRN Reason Start Time Stop Time Status Last Admin Dose Admin Acetaminophen (Tylenol) 650 mg Q4H PRN ORAL FEVER 07/19/18 15:45 08/18/18 15:44 07/20/18 06:24 Albuterol/ Ipratropium (Albuterol/ Ipratropium) 3 ml Q4H PRN HHN Shortness of Breath 07/19/18 15:45 07/24/18 15:44 Azithromycin (Zithromax) 250 mg DAILY ORAL 07/21/18 09:00 07/25/18 08:59 Ceftriaxone Sodium 1 gm/ Dextrose 55 ml @ 110 mls/hr Q24H IVPB 07/20/18 09:00 07/25/18 08:59 07/20/18 10:00 Dextrose (Dextrose 50%) 25 ml Q1H PRN IV Hypoglycemia 07/19/18 15:45 08/18/18 15:44 Dextrose (Dextrose 50%) 50 ml Q1H PRN IV Hypoglycemia 07/19/18 16:00 08/18/18 15:59 Heparin Sodium (Porcine) (Heparin 5000 units/ml) 5,000 units EVERY 12 HOURS SUBQ 07/19/18 21:00 08/18/18 20:59 07/20/18 09:16 Lorazepam (Ativan 2mg/ml 1ml) 2 mg Q2H PRN IV For Anxiety 07/19/18 15:45 07/26/18 15:44 Morphine Sulfate (Morphine Sulfate) 4 mg Q4H PRN IVP Severe Pain (Pain Scale 7-10) 07/19/18 15:45 07/26/18 15:44 Ondansetron HCl (Zofran) 4 mg Q6H PRN IVP Nausea & Vomiting 07/19/18 15:45 08/18/18 15:44 Polyethylene Glycol (Miralax) 17 gm DAILYPRN PRN ORAL Constipation 07/19/18 15:45 08/18/18 15:44 Sodium Chloride 1,000 ml @ 50 mls/hr Q20H IV 07/19/18 15:42 08/18/18 15:41 07/19/18 17:09 ASSESSMENT/RECS: # Left perihilar lung mass , probably malignant with evidence of liver and adrenal gland metastasis, most likely is Stage IV Lung cancer in a young woman with no major risk factors --> obtain a CT guided biopsy of the liver mass, consider biopsy of the lung mass -- either/or would suffice at this time --> outpatient CT brain as well as PET/CT to evaluate spread before any further treatment --> depended on results of the mass biopsy, would recommend either conventional chemo if proven lung ca, or immunotherapy if is a candidate --> discussed with her and daughter extensively --> appreciate pulm recs # Anemia of chronic disease -- panel has been reviewed --> workup has been reviewed as well # Possible obstructive pneumonia # Pleuritic chest pain # Asthma # Positive D-dimer --> likely related to malignancy Greatly appreciate consultation. Laron Delgado MD Jul 20, 2018 16:49
[2018-07-20 20:00] VITALS: BP 126/79
[2018-07-20] MEDS: Budesonide HHN 0.25mg/2ml ud HHN SCH (23:06)
[2018-07-21] VITALS: BP 120/71
[2018-07-21] MEDS: Albuterol/Ipratropium 3ml neb HHN SCH ×4 (01:00→19:12)
[2018-07-21 04:00] VITALS: BP 122/75
[2018-07-21 06:30] LABS: BASOPHILS % (AUTO) 0.8 % (0.0-2.0); EOSINOPHILS % (AUTO) 4.3 % (0.0-3.0); HEMATOCRIT 26.4 % (37.0-47.0); HEMOGLOBIN 8.4 G/DL (12.0-16.0); MEAN CORPUSCULAR VOLUME 77 FL (80-99); MONOCYTES % (AUTO) 10.7 % (1.0-10.0); NEUTROPHILS % (AUTO) 69.3 % (45.0-75.0); PLATELET COUNT 428 K/UL (150-450); RED BLOOD COUNT 3.45 M/UL (4.20-5.40); RED CELL DISTRIBUTION WIDTH 13.9 % (11.6-14.8); WHITE BLOOD COUNT 7.2 K/UL (4.8-10.8)
[2018-07-21 06:56] LABS: ANION GAP 6 mmol/L (5-15); BLOOD UREA NITROGEN 9 mg/dL (7-18); CALCIUM 9.2 MG/DL (8.5-10.1); CARBON DIOXIDE 30 MMOL/L (21-32); CHLORIDE 101 MMOL/L (98-107); CREATININE 0.7 MG/DL (0.55-1.30); FERRITIN 414 NG/ML (8-388); SODIUM 137 MMOL/L (136-145)
[2018-07-21 06:59] LABS: % IRON SATURATION 10 % (15-50); IRON 20 ug/dL (50-175); TOTAL IRON BINDING CAPACITY 207 ug/dL (250-450)
[2018-07-21 08:00] VITALS: BP 113/72
[2018-07-21] MEDS: Azithromycin 250mg tab ORAL SCH (08:18)
[2018-07-21] MEDS: cefTRIAXone 1 GM in D5W 55 ML IVPB SCH (08:18)
--- NOTE | 2018-07-21 08:19 | General Progress Note ---
Assessment/Plan Problem List: (1) Lung mass ICD Codes: R91.8 - Other nonspecific abnormal finding of lung field SNOMED: 521623235 (2) Anemia ICD Codes: D64.9 - Anemia, unspecified SNOMED: 570293714 (3) SOB (shortness of breath) ICD Codes: R06.02 - Shortness of breath SNOMED: 019121833 (4) Weak ICD Codes: R53.1 - Weakness SNOMED: 54061469 (5) Hemoptysis ICD Codes: R04.2 - Hemoptysis SNOMED: 93272067 (6) Atelectasis ICD Codes: J98.11 - Atelectasis SNOMED: 85082585 (7) Dyspnea ICD Codes: R06.00 - Dyspnea, unspecified SNOMED: 630554124 Status: stable, progressing Assessment/Plan o2 pulm tx diet f/u cbc bmp am heme pulm f/u pending bx Subjective Constitutional: Reports: weakness Allergies: Coded Allergies: No Known Allergies (Unverified , 07/19/18) All Systems: reviewed and negative except above Subjective calm in bed Objective Last 24 Hour Vital Signs Date Time Temp Pulse Resp B/P (MAP) Pulse Ox O2 Delivery O2 Flow Rate FiO2 07/21/18 07:35 76 16 98 Room Air 07/21/18 04:00 98.6 74 20 122/75 (91) 100 98.6 07/21/18 01:23 Room Air 07/21/18 01:23 Room Air 07/21/18 00:00 97.9 73 20 120/71 (87) 99 97.9 07/20/18 23:22 86 18 99 Room Air 21 07/20/18 23:08 84 16 99 Room Air 21 07/20/18 21:00 Room Air 07/20/18 20:00 98.2 94 18 126/79 (95) 100 98.2 07/20/18 19:33 83 16 99 Room Air 07/20/18 19:23 80 16 97 Room Air 07/20/18 16:00 98.6 84 20 121/84 (96) 98 98.6 07/20/18 13:10 79 18 99 Room Air 07/20/18 12:56 77 18 99 07/20/18 12:00 97.9 81 20 120/81 (94) 99 97.9 07/20/18 09:00 Room Air Intake and Output 07/20/18 07/21/18 19:00 07:00 Intake Total 1205 ml 550 ml Balance 1205 ml 550 ml Intake Oral 600 ml IV Total 605 ml 550 ml # Voids 5 Laboratory Tests 07/21/18 05:35: White Blood Count 7.2, Red Blood Count 3.45L, Hemoglobin 8.4L, Hematocrit 26.4L , Mean Corpuscular Volume 77L, Mean Corpuscular Hemoglobin 24.3L, Mean Corpuscular Hemoglobin Concent 31.7L, Red Cell Distribution Width 13.9, Platelet Count 428, Mean Platelet Volume 5.3L, Neutrophils (%) (Auto) 69.3, Lymphocytes (%) (Auto) 15.0L, Monocytes (%) (Auto) 10.7H, Eosinophils (%) (Auto ) 4.3H, Basophils (%) (Auto) 0.8, Sodium Level 137, Potassium Level 4.0, Chloride Level 101, Carbon Dioxide Level 30, Anion Gap 6, Blood Urea Nitrogen 9 , Creatinine 0.7, Estimat Glomerular Filtration Rate > 60, Glucose Level 93, Calcium Level 9.2, Iron Level 20L, Total Iron Binding Capacity 207L, Percent Iron Saturation 10L, Unsaturated Iron Binding 187, Ferritin 414H, Alpha Fetoprotein [Pending], Carcinoembryonic Antigen [Pending] Height (Feet): 5 Height (Inches): 8.00 Weight (Pounds): 140 General Appearance: alert EENT: normal ENT inspection Neck: normal alignment Cardiovascular: normal peripheral pulses, normal rate, regular rhythm Respiratory/Chest: chest wall non-tender, decreased breath sounds Abdomen: normal bowel sounds, non tender, soft Extremities: normal inspection Edema: no edema noted Arm (L), no edema noted Arm (R), no edema noted Leg (L), no edema noted Leg (R), no edema noted Pedal (L), no edema noted Pedal (R), no edema noted Generalized Neurologic: responsive, motor weakness Skin: normal pigmentation, warm/dry Martín Vera DO Jul 21, 2018 08:19
[2018-07-21] MEDS: Heparin 5000 units/ml inj SUBQ SCH ×2 (08:23→20:01)
--- NOTE | 2018-07-21 09:01 | Pulmonology Progress Note ---
Assessment/Plan Assessment/Plan ASSESSMENT Left perihilar lung mass , probably malignant with evidence of liver and adrenal gland metastasis Possible obstructive pneumonia Pleuritic chest pain Asthma Anemia of chronic disease Positive D-dimer, likely r/t malignancy PLAN OF CARE Med Surg floor O2 to keep pulse ox above 92% pulmonary toilet with bronchodilator ATC + PRN add HHN with inhaled steroids/Budesonide bid empiric antibiotics for possible obstructive PNA ID follows sputum culture antitussive prn possible obstructive pneumonia CT-guided biopsy of lung mass in am, in unable, then probably bronchoscopy cancer tumor markers oncology follows monitor H&H with goal to keep hemoglobin above 7, anemia w/up c/w anemia of chronic disease ; stool OB venous duplex BLE D dimer elevated likely due to malignancy pain management DVT prophylaxis supportive care case discussed and evaluated by supervising physician Subjective Allergies: Coded Allergies: No Known Allergies (Unverified , 07/19/18) Subjective no fever, seen by oncologist + cough, chest pain with cough and deep vretahuing Objective Last 24 Hour Vital Signs Date Time Temp Pulse Resp B/P (MAP) Pulse Ox O2 Delivery O2 Flow Rate FiO2 07/21/18 07:45 78 16 98 Room Air 21 07/21/18 07:35 76 16 98 Room Air 21 07/21/18 04:00 98.6 74 20 122/75 (91) 100 98.6 07/21/18 01:23 Room Air 07/21/18 01:23 Room Air 07/21/18 00:00 97.9 73 20 120/71 (87) 99 97.9 07/20/18 23:22 86 18 99 Room Air 21 07/20/18 23:08 84 16 99 Room Air 21 07/20/18 21:00 Room Air 07/20/18 20:00 98.2 94 18 126/79 (95) 100 98.2 07/20/18 19:33 83 16 99 Room Air 07/20/18 19:23 80 16 97 Room Air 07/20/18 16:00 98.6 84 20 121/84 (96) 98 98.6 07/20/18 13:10 79 18 99 Room Air 07/20/18 12:56 77 18 99 07/20/18 12:00 97.9 81 20 120/81 (94) 99 97.9 07/20/18 09:00 Room Air Intake and Output 07/20/18 07/21/18 19:00 07:00 Intake Total 1205 ml 550 ml Balance 1205 ml 550 ml Intake Oral 600 ml IV Total 605 ml 550 ml # Voids 5 Objective General Appearance: no apparent distress, A/A/O x 3 female in no apparent distress Lines, tubes and drains: peripheral HEENT: normocephalic, atraumatic, anicteric Neck: non-tender, supple Respiratory/Chest: no respiratory distress, expiratory wheezing anterior: upper lobes bilaterally, posterior -throughout Cardiovascular/Chest: normal rate, no JVD Abdomen: normal bowel sounds, non tender, soft Extremities: normal range of motion, non-tender 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, no motor/sensory deficits, alert Musculoskeletal: normal muscle bulk Laboratory Tests 07/21/18 05:35: White Blood Count 7.2, Red Blood Count 3.45L, Hemoglobin 8.4L, Hematocrit 26.4L , Mean Corpuscular Volume 77L, Mean Corpuscular Hemoglobin 24.3L, Mean Corpuscular Hemoglobin Concent 31.7L, Red Cell Distribution Width 13.9, Platelet Count 428, Mean Platelet Volume 5.3L, Neutrophils (%) (Auto) 69.3, Lymphocytes (%) (Auto) 15.0L, Monocytes (%) (Auto) 10.7H, Eosinophils (%) (Auto ) 4.3H, Basophils (%) (Auto) 0.8, Sodium Level 137, Potassium Level 4.0, Chloride Level 101, Carbon Dioxide Level 30, Anion Gap 6, Blood Urea Nitrogen 9 , Creatinine 0.7, Estimat Glomerular Filtration Rate > 60, Glucose Level 93, Calcium Level 9.2, Iron Level 20L, Total Iron Binding Capacity 207L, Percent Iron Saturation 10L, Unsaturated Iron Binding 187, Ferritin 414H, Alpha Fetoprotein [Pending], Carcinoembryonic Antigen [Pending] Current Medications Medications (Trade) Dose Ordered Sig/Madelyn Route PRN Reason Start Time Stop Time Status Last Admin Dose Admin Acetaminophen (Tylenol) 650 mg Q4H PRN ORAL FEVER 07/19/18 15:45 08/18/18 15:44 07/20/18 06:24 Albuterol/ Ipratropium (Albuterol/ Ipratropium) 3 ml Q4H PRN HHN Shortness of Breath 07/19/18 15:45 07/24/18 15:44 Albuterol/ Ipratropium (Albuterol/ Ipratropium) 3 ml Q6HRT HHN 07/20/18 13:00 07/25/18 12:59 07/21/18 07:35 Azithromycin (Zithromax) 250 mg DAILY ORAL 07/21/18 09:00 07/25/18 08:59 07/21/18 08:18 Budesonide (Pulmicort) 0.25 mg Q12HRT HHN 07/20/18 22:00 08/19/18 21:59 07/20/18 23:06 Ceftriaxone Sodium 1 gm/ Dextrose 55 ml @ 110 mls/hr Q24H IVPB 07/20/18 09:00 07/25/18 08:59 07/21/18 08:18 Dextrose (Dextrose 50%) 25 ml Q1H PRN IV Hypoglycemia 07/19/18 15:45 08/18/18 15:44 Dextrose (Dextrose 50%) 50 ml Q1H PRN IV Hypoglycemia 07/19/18 16:00 08/18/18 15:59 Heparin Sodium (Porcine) (Heparin 5000 units/ml) 5,000 units EVERY 12 HOURS SUBQ 07/19/18 21:00 08/18/18 20:59 07/21/18 08:23 Lidocaine HCl (Xylocaine 1% 30ml) 30 ml NOW PRN INJ Radiology Procedure 07/20/18 11:45 07/21/18 11:44 Lorazepam (Ativan 2mg/ml 1ml) 2 mg Q2H PRN IV For Anxiety 07/19/18 15:45 07/26/18 15:44 Morphine Sulfate (Morphine Sulfate) 4 mg Q4H PRN IVP Severe Pain (Pain Scale 7-10) 07/19/18 15:45 07/26/18 15:44 07/20/18 17:42 Ondansetron HCl (Zofran) 4 mg Q6H PRN IVP Nausea & Vomiting 07/19/18 15:45 08/18/18 15:44 Polyethylene Glycol (Miralax) 17 gm DAILYPRN PRN ORAL Constipation 07/19/18 15:45 08/18/18 15:44 Promethazine HCl/ Codeine (Phenergan with Codeine) 5 ml Q6H PRN ORAL For Cough 07/20/18 11:45 08/19/18 11:44 Sodium Chloride 1,000 ml @ 50 mls/hr Q20H IV 07/19/18 15:42 08/18/18 15:41 07/20/18 17:35 Carola Warren [employer]IGENCE OFFICER Jul 21, 2018 09:01
[2018-07-21] MEDS: Budesonide HHN 0.25mg/2ml ud HHN SCH ×2 (10:00→22:13)
[2018-07-21] MEDS ORDERED: 1/2 NS 1000ml IV ONE (10:13)
[2018-07-21 12:00] VITALS: BP 122/72
--- NOTE | 2018-07-21 13:47 | General Progress Note ---
Assessment/Plan Assessment/Plan ASSESSMENT/RECS: # Left perihilar lung mass , probably malignant with evidence of liver and adrenal gland metastasis, most likely is Stage IV Lung cancer in a young woman with no major risk factors, is pending evaluation as per below --> obtain a CT guided biopsy of the liver mass, consider biopsy of the lung mass -- either/or would suffice at this time --> outpatient CT brain as well as PET/CT to evaluate spread before any further treatment --> tumor markers have been ordered and results reviewed --> depended on results of the mass biopsy, would recommend either conventional chemo if proven lung ca, or immunotherapy if is a candidate --> discussed with her and daughter extensively --> appreciate pulm recs # Anemia of chronic disease -- panel has been reviewed --> workup has been reviewed as well, ferritin 414 --> hgb goal >7 # Possible obstructive pneumonia # Pleuritic chest pain # Asthma # Positive D-dimer --> likely related to malignancy Greatly appreciate consultation. Subjective Constitutional: Denies: no symptoms, chills, diaphoresis, fever, malaise, weakness, other HEENT: Denies: no symptoms, eye pain, blurred vision, tearing, double vision, ear pain, ear discharge, nose pain, nose congestion, throat pain, throat swelling, mouth pain, mouth swelling, other Cardiovascular: Denies: no symptoms, chest pain, edema, irregular heart rate, lightheadedness, palpitations, syncope, other Respiratory: Denies: no symptoms, cough, orthopnea, shortness of breath, SOB with excertion, SOB at rest, sputum, stridor, wheezing, other Gastrointestinal/Abdominal: Denies: no symptoms, abdomen distended, abdominal pain, black stools, tarry stools, blood in stool, constipated, diarrhea, difficulty swallowing, nausea, poor appetite, poor fluid intake, rectal bleeding , vomiting, other Genitourinary: Denies: no symptoms, burning, discharge, frequency, flank pain, hematuria, incontinence, pain, urgency, other Neurologic/Psychiatric: Denies: no symptoms, anxiety, depressed, emotional problems, headache, numbness, paresthesia, pre-existing deficit, seizure, tingling, tremors, weakness, other Endocrine: Denies: no symptoms, excessive sweating, flushing, intolerance to cold, intolerance to heat, increased hunger, increased thirst, increased urine, unexplained weight gain, unexplained weight loss, other Hematologic/Lymphatic: Denies: no symptoms, anemia, easy bleeding, easy bruising, other Allergies: Coded Allergies: No Known Allergies (Unverified , 07/19/18) Subjective ct guided biopsy is pending, no fevers or chills noted Objective Last 24 Hour Vital Signs Date Time Temp Pulse Resp B/P (MAP) Pulse Ox O2 Delivery O2 Flow Rate FiO2 07/21/18 13:13 85 16 99 Room Air 21 07/21/18 13:05 89 16 99 Room Air 21 07/21/18 12:00 99.1 81 19 122/72 (89) 100 99.1 07/21/18 11:01 Room Air 21 07/21/18 11:01 Room Air 07/21/18 09:00 Room Air 07/21/18 08:00 97.9 74 18 113/72 (86) 100 97.9 07/21/18 07:45 78 16 98 Room Air 07/21/18 07:35 76 16 98 Room Air 07/21/18 04:00 98.6 74 20 122/75 (91) 100 98.6 07/21/18 01:23 Room Air 07/21/18 01:23 Room Air 07/21/18 00:00 97.9 73 20 120/71 (87) 99 97.9 07/20/18 23:22 86 18 99 Room Air 07/20/18 23:08 84 16 99 Room Air 07/20/18 21:00 Room Air 07/20/18 20:00 98.2 94 18 126/79 (95) 100 98.2 07/20/18 19:33 83 16 99 Room Air 07/20/18 19:23 80 16 97 Room Air 07/20/18 16:00 98.6 84 20 121/84 (96) 98 98.6 Intake and Output 07/20/18 07/21/18 19:00 07:00 Intake Total 1205 ml 550 ml Balance 1205 ml 550 ml Intake Oral 600 ml IV Total 605 ml 550 ml # Voids 5 Laboratory Tests 07/21/18 05:35: White Blood Count 7.2, Red Blood Count 3.45L, Hemoglobin 8.4L, Hematocrit 26.4L , Mean Corpuscular Volume 77L, Mean Corpuscular Hemoglobin 24.3L, Mean Corpuscular Hemoglobin Concent 31.7L, Red Cell Distribution Width 13.9, Platelet Count 428, Mean Platelet Volume 5.3L, Neutrophils (%) (Auto) 69.3, Lymphocytes (%) (Auto) 15.0L, Monocytes (%) (Auto) 10.7H, Eosinophils (%) (Auto ) 4.3H, Basophils (%) (Auto) 0.8, Sodium Level 137, Potassium Level 4.0, Chloride Level 101, Carbon Dioxide Level 30, Anion Gap 6, Blood Urea Nitrogen 9 , Creatinine 0.7, Estimat Glomerular Filtration Rate > 60, Glucose Level 93, Calcium Level 9.2, Iron Level 20L, Total Iron Binding Capacity 207L, Percent Iron Saturation 10L, Unsaturated Iron Binding 187, Ferritin 414H, Alpha Fetoprotein [Pending], Carcinoembryonic Antigen [Pending] Height (Feet): 5 Height (Inches): 8.00 Weight (Pounds): 140 General Appearance: alert EENT: TMs normal Neck: supple Cardiovascular: normal rate Respiratory/Chest: normal breath sounds Abdomen: normal bowel sounds Extremities: non-tender Edema: 1+ Leg (L), 1+ Leg (R) Edema: mild edema Neurologic: alert Skin: warm/dry Laron Delgado MD Jul 21, 2018 13:47
--- NOTE | 2018-07-21 13:54 | Cardiology Report ---
APPROVED REPORT EKG Measurement Heart [id number] [place] 154P3 [id number] Normal sinus rhythm Normal ECG
--- NOTE | 2018-07-21 14:00 | Cardiology Report ---
APPROVED REPORT EKG Measurement Heart [id number] Normal sinus rhythm Nonspecific T wave abnormality Abnormal ECG
[2018-07-21 16:00] VITALS: BP 116/67
[2018-07-21] MEDS ORDERED: Milk of Magnesia 30ml Ud ORAL SCH (16:15)
[2018-07-21] MEDS ORDERED: Miralax 17gm pkt ORAL PRN (16:15)
[2018-07-21 20:00] VITALS: BP 128/68
--- NOTE | 2018-07-21 20:21 | Diagnostic Imaging Report ---
APPROVED REPORT CPT Code: 54157 Present Symptoms Comments: BILATERAL LEGS PAIN. BILATERAL: Imaging reveals a patent deep venous system bilaterally. There is no evidence of thrombus within the femoral, popliteal or tibial segments. The greater saphenous veins are also within normal limits. Doppler indicates normal spontaneous flow within these segments.
[2018-07-22] VITALS: BP 115/66
[2018-07-22] MEDS: Albuterol/Ipratropium 3ml neb HHN SCH ×4 (01:00→19:16)
[2018-07-22 04:00] VITALS: BP 126/76
[2018-07-22 07:20] LABS: BASOPHILS % (AUTO) 0.8 % (0.0-2.0); EOSINOPHILS % (AUTO) 5.1 % (0.0-3.0); HEMATOCRIT 27.4 % (37.0-47.0); HEMOGLOBIN 8.7 G/DL (12.0-16.0); LYMPHOCYTES % (AUTO) 14.9 % (20.0-45.0); MEAN CORPUSCULAR VOLUME 76 FL (80-99); MONOCYTES % (AUTO) 11.9 % (1.0-10.0); NEUTROPHILS % (AUTO) 67.3 % (45.0-75.0); PLATELET COUNT 450 K/UL (150-450); RED CELL DISTRIBUTION WIDTH 13.6 % (11.6-14.8); WHITE BLOOD COUNT 8.2 K/UL (4.8-10.8)
[2018-07-22 07:25] LABS: ANION GAP 4 mmol/L (5-15); BLOOD UREA NITROGEN 7 mg/dL (7-18); CALCIUM 9.1 MG/DL (8.5-10.1); CARBON DIOXIDE 31 MMOL/L (21-32); CHLORIDE 103 MMOL/L (98-107); CREATININE 0.7 MG/DL (0.55-1.30); POTASSIUM 4.7 MMOL/L (3.5-5.1); SODIUM 138 MMOL/L (136-145)
[2018-07-22 08:00] VITALS: BP 132/72
[2018-07-22] MEDS: Azithromycin 250mg tab ORAL SCH (08:47)
[2018-07-22] MEDS: cefTRIAXone 1 GM in D5W 55 ML IVPB SCH (08:47)
[2018-07-22] MEDS: Heparin 5000 units/ml inj SUBQ SCH ×2 (08:47→21:00)
--- NOTE | 2018-07-22 08:55 | Infectious Diseases Prog Note ---
Assessment/Plan Assessment/Plan Lung Nodules and consolidation Most probably Cancer. May have some component of post obstructive PNA but not likely Findings no consistent with TB or other infection 07/19/18 CTA Chest - Suspicion of a central left perihilar pulmonary mass/ adenopathy with endobronchial invasion into the left mainstem bronchus, associated with collapse of the left uppe lobe bronchus, atelectasis and consolidation of the left upper lobe. Evidence of metastatic neoplasm with multiple lesions within the liver. Large right suprarenal mass probably metastatic disease to the right adrenal gland. Hx of asthma Anemia PLAN: - Continue Azithromycin #2/5 and Ceftriaxone #2/5 for possible obstructive PNA - 07/20 Vancomycin #1 and Cefepime #1 - Needs Bx of lesion to evaluate for malignancy vs less likely infectious process. - Monitor CBC and Temps - Supportive care We will continue to follow the patient during this hospitalization. Subjective Allergies: Coded Allergies: No Known Allergies (Unverified , 07/19/18) Subjective Patient with no new complaints Afebrile Objective Vital Signs Last 24 Hour Vital Signs Date Time Temp Pulse Resp B/P (MAP) Pulse Ox O2 Delivery O2 Flow Rate FiO2 07/22/18 08:00 98.2 67 18 132/72 (92) 99 98.2 07/22/18 07:56 Room Air 07/22/18 07:53 Room Air 07/22/18 07:52 Room Air 07/22/18 04:00 98.7 76 18 126/76 (93) 99 98.7 07/22/18 01:02 Room Air 07/22/18 01:02 Room Air 07/22/18 00:00 99.3 78 18 115/66 (82) 100 99.3 07/21/18 22:26 81 20 99 Room Air 21 07/21/18 22:14 79 18 99 Room Air 21 07/21/18 21:00 Room Air 07/21/18 20:00 98.3 97 18 128/68 (88) 96 98.3 07/21/18 19:25 85 16 99 Room Air 21 07/21/18 19:12 92 16 98 Room Air 21 07/21/18 16:00 97.7 92 18 116/67 (83) 100 97.7 07/21/18 13:13 85 16 99 Room Air 21 07/21/18 13:05 89 16 99 Room Air 21 07/21/18 12:00 99.1 81 19 122/72 (89) 100 99.1 07/21/18 11:01 Room Air 21 07/21/18 11:01 Room Air 21 07/21/18 09:00 Room Air Height (Feet): 5 Height (Inches): 8.00 Weight (Pounds): 140 Objective Gen: NAD, well appearing, alert HEENT: NCAT, MMM, EOMI LUNGS: CTAB, No W/C, No Accessory muscle use CARDS: RRR, S1, S2, No M/R/G ABD: Soft, NT, ND, No R/G, + BS Laboratory Tests Test 07/21/18 22:35 07/22/18 05:45 Stool Occult Blood Negative (NEGATIVE) White Blood Count 8.2 K/UL (4.8-10.8) Red Blood Count 3.60 M/UL (4.20-5.40) L Hemoglobin 8.7 G/DL (12.0-16.0) L Hematocrit 27.4 % (37.0-47.0) L Mean Corpuscular Volume 76 FL (80-99) L Mean Corpuscular Hemoglobin 24.2 PG (27.0-31.0) L Mean Corpuscular Hemoglobin Concent 31.7 G/DL (32.0-36.0) L Red Cell Distribution Width 13.6 % (11.6-14.8) Platelet Count 450 K/UL (150-450) Mean Platelet Volume 5.3 FL (6.5-10.1) L Neutrophils (%) (Auto) 67.3 % (45.0-75.0) Lymphocytes (%) (Auto) 14.9 % (20.0-45.0) L Monocytes (%) (Auto) 11.9 % (1.0-10.0) H Eosinophils (%) (Auto) 5.1 % (0.0-3.0) H Basophils (%) (Auto) 0.8 % (0.0-2.0) Sodium Level 138 MMOL/L (136-145) Potassium Level 4.7 MMOL/L (3.5-5.1) Chloride Level 103 MMOL/L (98-107) Carbon Dioxide Level 31 MMOL/L (21-32) Anion Gap 4 mmol/L (5-15) L Blood Urea Nitrogen 7 mg/dL (7-18) Creatinine 0.7 MG/DL (0.55-1.30) Estimat Glomerular Filtration Rate > 60 mL/min (>60) Glucose Level 83 MG/DL (74-106) Calcium Level 9.1 MG/DL (8.5-10.1) Current Medications Medications (Trade) Dose Ordered Sig/Madelyn Route PRN Reason Start Time Stop Time Status Last Admin Dose Admin Acetaminophen (Tylenol) 650 mg Q4H PRN ORAL FEVER 07/19/18 15:45 08/18/18 15:44 07/20/18 06:24 Albuterol/ Ipratropium (Albuterol/ Ipratropium) 3 ml Q4H PRN HHN Shortness of Breath 07/19/18 15:45 07/24/18 15:44 Albuterol/ Ipratropium (Albuterol/ Ipratropium) 3 ml Q6HRT HHN 07/20/18 13:00 07/25/18 12:59 07/21/18 19:12 Azithromycin (Zithromax) 250 mg DAILY ORAL 07/21/18 09:00 07/25/18 08:59 07/22/18 08:47 Budesonide (Pulmicort) 0.25 mg Q12HRT N 07/20/18 22:00 08/19/18 21:59 07/21/18 22:13 Ceftriaxone Sodium 1 gm/ Dextrose 55 ml @ 110 mls/hr Q24H IVPB 07/20/18 09:00 07/25/18 08:59 07/22/18 08:47 Dextrose (Dextrose 50%) 25 ml Q1H PRN IV Hypoglycemia 07/19/18 15:45 08/18/18 15:44 Dextrose (Dextrose 50%) 50 ml Q1H PRN IV Hypoglycemia 07/19/18 16:00 08/18/18 15:59 Heparin Sodium (Porcine) (Heparin 5000 units/ml) 5,000 units EVERY 12 HOURS SUBQ 07/19/18 21:00 08/18/18 20:59 07/21/18 08:23 Lorazepam (Ativan 2mg/ml 1ml) 2 mg Q2H PRN IV For Anxiety 07/19/18 15:45 07/26/18 15:44 Morphine Sulfate (Morphine Sulfate) 4 mg Q4H PRN IVP Severe Pain (Pain Scale 7-10) 07/19/18 15:45 07/26/18 15:44 07/20/18 17:42 Ondansetron HCl (Zofran) 4 mg Q6H PRN IVP Nausea & Vomiting 07/19/18 15:45 08/18/18 15:44 Polyethylene Glycol (Miralax) 17 gm DAILYPRN PRN ORAL Constipation 07/21/18 16:15 08/20/18 16:14 Promethazine HCl/ Codeine (Phenergan with Codeine) 5 ml Q6H PRN ORAL For Cough 07/20/18 11:45 08/19/18 11:44 Sodium Chloride 1,000 ml @ 50 mls/hr Q20H IV 07/19/18 15:42 08/18/18 15:41 07/20/18 17:35 Rodo Adkins MD Jul 22, 2018 08:55
--- NOTE | 2018-07-22 09:15 | General Progress Note ---
Assessment/Plan Assessment/Plan ASSESSMENT/RECS: # Left perihilar lung mass, probably malignant with evidence of liver and adrenal gland metastasis, most likely is Stage IV Lung cancer in a young woman with no major risk factors, is pending evaluation as per below --> obtain a CT guided biopsy of the liver mass, consider biopsy of the lung mass - either/or would suffice at this time --> outpatient CT brain as well as PET/CT to evaluate spread before any further treatment --> tumor markers have been ordered and results reviewed --> depended on results of the mass biopsy, would recommend either conventional chemo if proven lung ca, or immunotherapy if is a candidate --> discussed with her and daughter extensively --> appreciate pulm recs # Anemia of chronic disease -- panel has been reviewed --> workup has been reviewed as well, ferritin 414 --> hgb goal >7 # Possible obstructive pneumonia # Pleuritic chest pain # Asthma # Positive D-dimer --> likely related to malignancy Greatly appreciate consultation. Subjective Constitutional: Denies: no symptoms, chills, diaphoresis, fever, malaise, weakness, other HEENT: Denies: no symptoms, eye pain, blurred vision, tearing, double vision, ear pain, ear discharge, nose pain, nose congestion, throat pain, throat swelling, mouth pain, mouth swelling, other Cardiovascular: Denies: no symptoms, chest pain, edema, irregular heart rate, lightheadedness, palpitations, syncope, other Respiratory: Denies: no symptoms, cough, orthopnea, shortness of breath, SOB with excertion, SOB at rest, sputum, stridor, wheezing, other Gastrointestinal/Abdominal: Denies: no symptoms, abdomen distended, abdominal pain, black stools, tarry stools, blood in stool, constipated, diarrhea, difficulty swallowing, nausea, poor appetite, poor fluid intake, rectal bleeding , vomiting, other Genitourinary: Denies: no symptoms, burning, discharge, frequency, flank pain, hematuria, incontinence, pain, urgency, other Neurologic/Psychiatric: Denies: no symptoms, anxiety, depressed, emotional problems, headache, numbness, paresthesia, pre-existing deficit, seizure, tingling, tremors, weakness, other Endocrine: Denies: no symptoms, excessive sweating, flushing, intolerance to cold, intolerance to heat, increased hunger, increased thirst, increased urine, unexplained weight gain, unexplained weight loss, other Hematologic/Lymphatic: Denies: no symptoms, anemia, easy bleeding, easy bruising, other Allergies: Coded Allergies: No Known Allergies (Unverified , 07/19/18) Subjective ct guided biopsy is pending today, no fevers or chills r noted Objective Last 24 Hour Vital Signs Date Time Temp Pulse Resp B/P (MAP) Pulse Ox O2 Delivery O2 Flow Rate FiO2 07/22/18 08:00 98.2 67 18 132/72 (92) 99 98.2 07/22/18 07:56 Room Air 07/22/18 07:53 Room Air 21 07/22/18 07:52 Room Air 21 07/22/18 04:00 98.7 76 18 126/76 (93) 99 98.7 07/22/18 01:02 Room Air 07/22/18 01:02 Room Air 07/22/18 00:00 99.3 78 18 115/66 (82) 100 99.3 07/21/18 22:26 81 20 99 Room Air 21 07/21/18 22:14 79 18 99 Room Air 21 07/21/18 21:00 Room Air 07/21/18 20:00 98.3 97 18 128/68 (88) 96 98.3 07/21/18 19:25 85 16 99 Room Air 21 07/21/18 19:12 92 16 98 Room Air 21 07/21/18 16:00 97.7 92 18 116/67 (83) 100 97.7 07/21/18 13:13 85 16 99 Room Air 21 07/21/18 13:05 89 16 99 Room Air 21 07/21/18 12:00 99.1 81 19 122/72 (89) 100 99.1 07/21/18 11:01 Room Air 21 07/21/18 11:01 Room Air 21 Intake and Output 07/21/18 07/22/18 19:00 07:00 Intake Total 480 ml 400 ml Balance 480 ml 400 ml Intake Oral 480 ml 400 ml # Voids 2 # Bowel Movements 1 Laboratory Tests 07/21/18 22:35: Stool Occult Blood Negative 07/22/18 05:45: White Blood Count 8.2, Red Blood Count 3.60L, Hemoglobin 8.7L, Hematocrit 27.4L , Mean Corpuscular Volume 76L, Mean Corpuscular Hemoglobin 24.2L, Mean Corpuscular Hemoglobin Concent 31.7L, Red Cell Distribution Width 13.6, Platelet Count 450, Mean Platelet Volume 5.3L, Neutrophils (%) (Auto) 67.3, Lymphocytes (%) (Auto) 14.9L, Monocytes (%) (Auto) 11.9H, Eosinophils (%) (Auto ) 5.1H, Basophils (%) (Auto) 0.8, Sodium Level 138, Potassium Level 4.7, Chloride Level 103, Carbon Dioxide Level 31, Anion Gap 4L, Blood Urea Nitrogen 7 , Creatinine 0.7, Estimat Glomerular Filtration Rate > 60, Glucose Level 83, Calcium Level 9.1 Height (Feet): 5 Height (Inches): 8.00 Weight (Pounds): 140 General Appearance: no apparent distress EENT: PERRL/EOMI Neck: supple Cardiovascular: regular rhythm Respiratory/Chest: normal breath sounds Abdomen: normal bowel sounds Extremities: non-tender Edema: 1+ Leg (L), 1+ Leg (R) Edema: mild edema Neurologic: no motor/sensory deficits Skin: warm/dry Laron Delgado MD Jul 22, 2018 09:15
[2018-07-22] MEDS: Budesonide HHN 0.25mg/2ml ud HHN SCH ×2 (10:00→21:21)
[2018-07-22 12:02] VITALS: BP 122/75
--- NOTE | 2018-07-22 12:26 | Pulmonology Progress Note ---
Assessment/Plan Problems: (1) Metastatic cancer (2) Hemoptysis (3) Lung mass Assessment/Plan liver biopsy today symptomatic treatment oncology follow up Subjective ROS Limited/Unobtainable: No Constitutional: Reports: no symptoms HEENT: Repors: no symptoms Allergies: Coded Allergies: No Known Allergies (Unverified , 07/19/18) Objective Last 24 Hour Vital Signs Date Time Temp Pulse Resp B/P (MAP) Pulse Ox O2 Delivery O2 Flow Rate FiO2 07/22/18 12:02 98.1 73 20 122/75 (91) 100 98.1 07/22/18 10:00 Room Air 21 07/22/18 10:00 Room Air 21 07/22/18 08:00 98.2 67 18 132/72 (92) 99 98.2 07/22/18 07:56 Room Air 07/22/18 07:53 Room Air 21 07/22/18 07:52 Room Air 21 07/22/18 04:00 98.7 76 18 126/76 (93) 99 98.7 07/22/18 01:02 Room Air 07/22/18 01:02 Room Air 07/22/18 00:00 99.3 78 18 115/66 (82) 100 99.3 07/21/18 22:26 81 20 99 Room Air 21 07/21/18 22:14 79 18 99 Room Air 21 07/21/18 21:00 Room Air 07/21/18 20:00 98.3 97 18 128/68 (88) 96 98.3 07/21/18 19:25 85 16 99 Room Air 21 07/21/18 19:12 92 16 98 Room Air 21 07/21/18 16:00 97.7 92 18 116/67 (83) 100 97.7 07/21/18 13:13 85 16 99 Room Air 21 07/21/18 13:05 89 16 99 Room Air 21 Intake and Output 07/21/18 07/22/18 19:00 07:00 Intake Total 480 ml 400 ml Balance 480 ml 400 ml Intake Oral 480 ml 400 ml # Voids 2 # Bowel Movements 1 General Appearance: cachetic HEENT: normocephalic, atraumatic Respiratory/Chest: chest wall non-tender, lungs clear Breasts: no masses Cardiovascular: normal peripheral pulses Abdomen: soft, non tender, non distended Extremities: no cyanosis Skin: no rash Laboratory Tests 07/21/18 22:35: Stool Occult Blood Negative 07/22/18 05:45: White Blood Count 8.2, Red Blood Count 3.60L, Hemoglobin 8.7L, Hematocrit 27.4L , Mean Corpuscular Volume 76L, Mean Corpuscular Hemoglobin 24.2L, Mean Corpuscular Hemoglobin Concent 31.7L, Red Cell Distribution Width 13.6, Platelet Count 450, Mean Platelet Volume 5.3L, Neutrophils (%) (Auto) 67.3, Lymphocytes (%) (Auto) 14.9L, Monocytes (%) (Auto) 11.9H, Eosinophils (%) (Auto ) 5.1H, Basophils (%) (Auto) 0.8, Sodium Level 138, Potassium Level 4.7, Chloride Level 103, Carbon Dioxide Level 31, Anion Gap 4L, Blood Urea Nitrogen 7 , Creatinine 0.7, Estimat Glomerular Filtration Rate > 60, Glucose Level 83, Calcium Level 9.1 Current Medications Medications (Trade) Dose Ordered Sig/Madelyn Route PRN Reason Start Time Stop Time Status Last Admin Dose Admin Acetaminophen (Tylenol) 650 mg Q4H PRN ORAL FEVER 07/19/18 15:45 08/18/18 15:44 07/20/18 06:24 Albuterol/ Ipratropium (Albuterol/ Ipratropium) 3 ml Q4H PRN HHN Shortness of Breath 07/19/18 15:45 07/24/18 15:44 Albuterol/ Ipratropium (Albuterol/ Ipratropium) 3 ml Q6HRT N 07/20/18 13:00 07/25/18 12:59 07/21/18 19:12 Azithromycin (Zithromax) 250 mg DAILY ORAL 07/21/18 09:00 07/25/18 08:59 07/22/18 08:47 Budesonide (Pulmicort) 0.25 mg Q12HRT N 07/20/18 22:00 08/19/18 21:59 07/21/18 22:13 Ceftriaxone Sodium 1 gm/ Dextrose 55 ml @ 110 mls/hr Q24H IVPB 07/20/18 09:00 07/25/18 08:59 07/22/18 08:47 Dextrose (Dextrose 50%) 25 ml Q1H PRN IV Hypoglycemia 07/19/18 15:45 08/18/18 15:44 Dextrose (Dextrose 50%) 50 ml Q1H PRN IV Hypoglycemia 07/19/18 16:00 08/18/18 15:59 Heparin Sodium (Porcine) (Heparin 5000 units/ml) 5,000 units EVERY 12 HOURS SUBQ 07/19/18 21:00 08/18/18 20:59 07/21/18 08:23 Lorazepam (Ativan 2mg/ml 1ml) 2 mg Q2H PRN IV For Anxiety 07/19/18 15:45 07/26/18 15:44 Morphine Sulfate (Morphine Sulfate) 4 mg Q4H PRN IVP Severe Pain (Pain Scale 7-10) 07/19/18 15:45 07/26/18 15:44 07/20/18 17:42 Ondansetron HCl (Zofran) 4 mg Q6H PRN IVP Nausea & Vomiting 07/19/18 15:45 08/18/18 15:44 Polyethylene Glycol (Miralax) 17 gm DAILYPRN PRN ORAL Constipation 07/21/18 16:15 08/20/18 16:14 Promethazine HCl/ Codeine (Phenergan with Codeine) 5 ml Q6H PRN ORAL For Cough 07/20/18 11:45 08/19/18 11:44 Sodium Chloride 1,000 ml @ 50 mls/hr Q20H IV 07/19/18 15:42 08/18/18 15:41 07/20/18 17:35 Miguel Winston MD Jul 22, 2018 12:26
[2018-07-22] MEDS ORDERED: Lidocaine 1% Plain 30 ml INJ PRN (12:45)
--- NOTE | 2018-07-22 13:06 | General Progress Note ---
Assessment/Plan Problem List: (1) Lung mass ICD Codes: R91.8 - Other nonspecific abnormal finding of lung field SNOMED: 462174085 (2) Anemia ICD Codes: D64.9 - Anemia, unspecified SNOMED: 462572457 (3) SOB (shortness of breath) ICD Codes: R06.02 - Shortness of breath SNOMED: 551449147 (4) Weak ICD Codes: R53.1 - Weakness SNOMED: 82583620 (5) Hemoptysis ICD Codes: R04.2 - Hemoptysis SNOMED: 54342221 (6) Atelectasis ICD Codes: J98.11 - Atelectasis SNOMED: 60943840 (7) Dyspnea ICD Codes: R06.00 - Dyspnea, unspecified SNOMED: 938604098 Status: unchanged Assessment/Plan o2 pulm tx diet f/u cbc bmp am heme pulm f/u pending bx Subjective Constitutional: Reports: weakness Allergies: Coded Allergies: No Known Allergies (Unverified , 07/19/18) All Systems: reviewed and negative except above Subjective calm in bed awaiting biopsy Objective Last 24 Hour Vital Signs Date Time Temp Pulse Resp B/P (MAP) Pulse Ox O2 Delivery O2 Flow Rate FiO2 07/22/18 12:02 98.1 73 20 122/75 (91) 100 98.1 07/22/18 10:00 Room Air 21 07/22/18 10:00 Room Air 07/22/18 08:00 98.2 67 18 132/72 (92) 99 98.2 07/22/18 07:56 Room Air 07/22/18 07:53 Room Air 07/22/18 07:52 Room Air 21 07/22/18 04:00 98.7 76 18 126/76 (93) 99 98.7 07/22/18 01:02 Room Air 07/22/18 01:02 Room Air 07/22/18 00:00 99.3 78 18 115/66 (82) 100 99.3 07/21/18 22:26 81 20 99 Room Air 21 07/21/18 22:14 79 18 99 Room Air 21 07/21/18 21:00 Room Air 07/21/18 20:00 98.3 97 18 128/68 (88) 96 98.3 9/23/18 19:25 85 16 99 Room Air 21 07/21/18 19:12 92 16 98 Room Air 21 07/21/18 16:00 97.7 92 18 116/67 (83) 100 97.7 07/21/18 13:13 85 16 99 Room Air 21 Intake and Output 07/21/18 07/22/18 19:00 07:00 Intake Total 480 ml 400 ml Balance 480 ml 400 ml Intake Oral 480 ml 400 ml # Voids 2 # Bowel Movements 1 Laboratory Tests 07/21/18 22:35: Stool Occult Blood Negative 07/22/18 05:45: White Blood Count 8.2, Red Blood Count 3.60L, Hemoglobin 8.7L, Hematocrit 27.4L , Mean Corpuscular Volume 76L, Mean Corpuscular Hemoglobin 24.2L, Mean Corpuscular Hemoglobin Concent 31.7L, Red Cell Distribution Width 13.6, Platelet Count 450, Mean Platelet Volume 5.3L, Neutrophils (%) (Auto) 67.3, Lymphocytes (%) (Auto) 14.9L, Monocytes (%) (Auto) 11.9H, Eosinophils (%) (Auto ) 5.1H, Basophils (%) (Auto) 0.8, Sodium Level 138, Potassium Level 4.7, Chloride Level 103, Carbon Dioxide Level 31, Anion Gap 4L, Blood Urea Nitrogen 7 , Creatinine 0.7, Estimat Glomerular Filtration Rate > 60, Glucose Level 83, Calcium Level 9.1 Height (Feet): 5 Height (Inches): 8.00 Weight (Pounds): 139 General Appearance: alert EENT: normal ENT inspection Neck: normal alignment Cardiovascular: normal peripheral pulses, normal rate, regular rhythm Respiratory/Chest: chest wall non-tender, decreased breath sounds Abdomen: normal bowel sounds, non tender, soft Extremities: normal inspection Edema: no edema noted Arm (L), no edema noted Arm (R), no edema noted Leg (L), no edema noted Leg (R), no edema noted Pedal (L), no edema noted Pedal (R), no edema noted Generalized Neurologic: responsive, motor weakness Skin: normal pigmentation, warm/dry Martín Vera DO Jul 22, 2018 13:06
[2018-07-22 20:00] VITALS: BP 130/74
[2018-07-23] VITALS: BP 123/74
[2018-07-23] MEDS: Albuterol/Ipratropium 3ml neb HHN SCH ×4 (01:00→19:02)
[2018-07-23 04:00] VITALS: BP 117/73
[2018-07-23 06:35] LABS: EOSINOPHILS % (AUTO) 6.2 % (0.0-3.0); HEMATOCRIT 29.1 % (37.0-47.0); LYMPHOCYTES % (AUTO) 12.4 % (20.0-45.0); MEAN CORPUSCULAR VOLUME 77 FL (80-99); MONOCYTES % (AUTO) 11.1 % (1.0-10.0); NEUTROPHILS % (AUTO) 69.3 % (45.0-75.0); PLATELET COUNT 485 K/UL (150-450); RED BLOOD COUNT 3.77 M/UL (4.20-5.40); RED CELL DISTRIBUTION WIDTH 13.6 % (11.6-14.8); WHITE BLOOD COUNT 8.7 K/UL (4.8-10.8)
[2018-07-23 06:40] LABS: ANION GAP 5 mmol/L (5-15); BLOOD UREA NITROGEN 8 mg/dL (7-18); CALCIUM 9.4 MG/DL (8.5-10.1); CARBON DIOXIDE 31 MMOL/L (21-32); CHLORIDE 102 MMOL/L (98-107); CREATININE 0.7 MG/DL (0.55-1.30); POTASSIUM 5.1 MMOL/L (3.5-5.1); SODIUM 138 MMOL/L (136-145)
--- NOTE | 2018-07-23 06:57 | General Progress Note ---
Assessment/Plan Assessment/Plan ASSESSMENT/RECS: # Left perihilar lung mass, probably malignant with evidence of liver and adrenal gland metastasis, most likely is Stage IV Lung cancer in a young woman with no major risk factors, is pending evaluation as per below --> obtain a CT guided biopsy of the liver mass, consider biopsy of the lung mass - either/or would suffice at this time --> outpatient CT brain as well as PET/CT to evaluate spread before any further treatment --> tumor markers have been ordered and results reviewed --> depended on results of the mass biopsy, would recommend either conventional chemo if proven lung ca, or immunotherapy if is a candidate --> discussed with her and daughter need to take one step at a time --> appreciate pulm recs # Anemia of chronic disease -- panel has been reviewed --> workup has been reviewed as well, ferritin 414 --> hgb goal >7 # Possible obstructive pneumonia # Pleuritic chest pain # Asthma # Positive D-dimer --> likely related to malignancy Greatly appreciate consultation. Subjective Constitutional: Denies: no symptoms, chills, diaphoresis, fever, malaise, weakness, other HEENT: Denies: no symptoms, eye pain, blurred vision, tearing, double vision, ear pain, ear discharge, nose pain, nose congestion, throat pain, throat swelling, mouth pain, mouth swelling, other Cardiovascular: Denies: no symptoms, chest pain, edema, irregular heart rate, lightheadedness, palpitations, syncope, other Respiratory: Denies: no symptoms, cough, orthopnea, shortness of breath, SOB with excertion, SOB at rest, sputum, stridor, wheezing, other Gastrointestinal/Abdominal: Denies: no symptoms, abdomen distended, abdominal pain, black stools, tarry stools, blood in stool, constipated, diarrhea, difficulty swallowing, nausea, poor appetite, poor fluid intake, rectal bleeding , vomiting, other Genitourinary: Denies: no symptoms, burning, discharge, frequency, flank pain, hematuria, incontinence, pain, urgency, other Neurologic/Psychiatric: Denies: no symptoms, anxiety, depressed, emotional problems, headache, numbness, paresthesia, pre-existing deficit, seizure, tingling, tremors, weakness, other Endocrine: Denies: no symptoms, excessive sweating, flushing, intolerance to cold, intolerance to heat, increased hunger, increased thirst, increased urine, unexplained weight gain, unexplained weight loss, other Hematologic/Lymphatic: Denies: no symptoms, anemia, easy bleeding, easy bruising, other Allergies: Coded Allergies: No Known Allergies (Unverified , 07/19/18) Subjective ct guided biopsy is pending today, no fevers or chills r noted Objective Last 24 Hour Vital Signs Date Time Temp Pulse Resp B/P (MAP) Pulse Ox O2 Delivery O2 Flow Rate FiO2 07/23/18 04:00 98.2 74 17 117/73 (88) 97 98.2 07/23/18 01:01 Room Air 21 07/23/18 01:01 Room Air 21 07/23/18 00:00 98.3 95 18 123/74 (90) 98 98.3 07/22/18 21:21 Room Air 21 07/22/18 21:21 Room Air 21 07/22/18 21:00 Room Air 07/22/18 20:00 98.1 93 18 130/74 (92) 96 98.1 07/22/18 19:15 87 16 99 Room Air 21 07/22/18 19:10 84 16 97 Room Air 21 07/22/18 13:00 Room Air 21 07/22/18 13:00 Room Air 21 07/22/18 12:02 98.1 73 20 122/75 (91) 100 98.1 07/22/18 10:00 Room Air 21 07/22/18 10:00 Room Air 21 07/22/18 08:00 98.2 67 18 132/72 (92) 99 98.2 07/22/18 07:56 Room Air 07/22/18 07:53 Room Air 21 07/22/18 07:52 Room Air 21 Intake and Output 07/22/18 07/23/18 19:00 07:00 Intake Total 985 ml 550 ml Balance 985 ml 550 ml Intake Oral 480 ml IV Total 505 ml 550 ml # Voids 2 Laboratory Tests 07/23/18 05:40: White Blood Count 8.7, Red Blood Count 3.77L, Hemoglobin 9.0L, Hematocrit 29.1L , Mean Corpuscular Volume 77L, Mean Corpuscular Hemoglobin 23.9L, Mean Corpuscular Hemoglobin Concent 31.1L, Red Cell Distribution Width 13.6, Platelet Count 485H, Mean Platelet Volume 5.2L, Neutrophils (%) (Auto) 69.3, Lymphocytes (%) (Auto) 12.4L, Monocytes (%) (Auto) 11.1H, Eosinophils (%) (Auto ) 6.2H, Basophils (%) (Auto) 1.0, Sodium Level 138, Potassium Level 5.1, Chloride Level 102, Carbon Dioxide Level 31, Anion Gap 5, Blood Urea Nitrogen 8 , Creatinine 0.7, Estimat Glomerular Filtration Rate > 60, Glucose Level 89, Calcium Level 9.4 Height (Feet): 5 Height (Inches): 8.00 Weight (Pounds): 139 General Appearance: WD/WN EENT: PERRL/EOMI Neck: supple Cardiovascular: regular rhythm Respiratory/Chest: normal breath sounds Abdomen: no organomegaly Extremities: non-tender Edema: 1+ Leg (L), 1+ Leg (R) Edema: mild edema Neurologic: oriented x 3 Skin: warm/dry Laron Delgado MD Jul 23, 2018 06:57
[2018-07-23] MEDS: Budesonide HHN 0.25mg/2ml ud HHN SCH ×2 (07:10→22:00)
[2018-07-23 08:00] VITALS: BP 130/74
--- NOTE | 2018-07-23 08:57 | Infectious Diseases Prog Note ---
Assessment/Plan Assessment/Plan Lung Nodules and consolidation Most probably Cancer. May have some component of post obstructive PNA but not likely Findings no consistent with TB or other infection 07/19/18 CTA Chest - Suspicion of a central left perihilar pulmonary mass/ adenopathy with endobronchial invasion into the left mainstem bronchus, associated with collapse of the left uppe lobe bronchus, atelectasis and consolidation of the left upper lobe. Evidence of metastatic neoplasm with multiple lesions within the liver. Large right suprarenal mass probably metastatic disease to the right adrenal gland. Hx of asthma Anemia PLAN: - Continue Azithromycin #3/5 and Ceftriaxone #3/5 for possible obstructive PNA - 07/20 Vancomycin #1 and Cefepime #1 - Needs Bx of lesion to evaluate for malignancy vs less likely infectious process. - Monitor CBC and Temps - Supportive care We will continue to follow the patient during this hospitalization. Subjective Allergies: Coded Allergies: No Known Allergies (Unverified , 07/19/18) Subjective To get liver mass Bx today Afebrile Objective Vital Signs Last 24 Hour Vital Signs Date Time Temp Pulse Resp B/P (MAP) Pulse Ox O2 Delivery O2 Flow Rate FiO2 07/23/18 08:18 Room Air 07/23/18 07:20 78 16 99 Room Air 07/23/18 07:05 71 18 98 Room Air 07/23/18 04:00 98.2 74 17 117/73 (88) 97 98.2 07/23/18 01:01 Room Air 21 07/23/18 01:01 Room Air 07/23/18 00:00 98.3 95 18 123/74 (90) 98 98.3 07/22/18 21:21 Room Air 21 07/22/18 21:21 Room Air 21 07/22/18 21:00 Room Air 07/22/18 20:00 98.1 93 18 130/74 (92) 96 98.1 07/22/18 19:15 87 16 99 Room Air 21 07/22/18 19:10 84 16 97 Room Air 21 07/22/18 13:00 Room Air 21 07/22/18 13:00 Room Air 21 07/22/18 12:02 98.1 73 20 122/75 (91) 100 98.1 07/22/18 10:00 Room Air 21 07/22/18 10:00 Room Air 21 Height (Feet): 5 Height (Inches): 8.00 Weight (Pounds): 139 Objective Gen: NAD, Laying in bed HEENT: NCAT, MMM, EOMI LUNGS: CTAB, No W/C, No Accessory muscle use CARDS: RRR, S1, S2, No M/R/G ABD: Soft, NT, ND, No R/G, + BS Microbiology Date/Time Source Procedure Growth Status 07/21/18 13:37 Sputum Expectorated Gram Stain - Final Complete 07/21/18 13:37 Sputum Expectorated Sputum Culture - Final NORMAL UPPER RESPIRATORY STEVE PRESENT Complete Laboratory Tests Test 07/23/18 05:40 White Blood Count 8.7 K/UL (4.8-10.8) Red Blood Count 3.77 M/UL (4.20-5.40) L Hemoglobin 9.0 G/DL (12.0-16.0) L Hematocrit 29.1 % (37.0-47.0) L Mean Corpuscular Volume 77 FL (80-99) L Mean Corpuscular Hemoglobin 23.9 PG (27.0-31.0) L Mean Corpuscular Hemoglobin Concent 31.1 G/DL (32.0-36.0) L Red Cell Distribution Width 13.6 % (11.6-14.8) Platelet Count 485 K/UL (150-450) H Mean Platelet Volume 5.2 FL (6.5-10.1) L Neutrophils (%) (Auto) 69.3 % (45.0-75.0) Lymphocytes (%) (Auto) 12.4 % (20.0-45.0) L Monocytes (%) (Auto) 11.1 % (1.0-10.0) H Eosinophils (%) (Auto) 6.2 % (0.0-3.0) H Basophils (%) (Auto) 1.0 % (0.0-2.0) Sodium Level 138 MMOL/L (136-145) Potassium Level 5.1 MMOL/L (3.5-5.1) Chloride Level 102 MMOL/L (98-107) Carbon Dioxide Level 31 MMOL/L (21-32) Anion Gap 5 mmol/L (5-15) Blood Urea Nitrogen 8 mg/dL (7-18) Creatinine 0.7 MG/DL (0.55-1.30) Estimat Glomerular Filtration Rate > 60 mL/min (>60) Glucose Level 89 MG/DL (74-106) Calcium Level 9.4 MG/DL (8.5-10.1) Current Medications Medications (Trade) Dose Ordered Sig/Madelyn Route PRN Reason Start Time Stop Time Status Last Admin Dose Admin Acetaminophen (Tylenol) 650 mg Q4H PRN ORAL FEVER 07/19/18 15:45 08/18/18 15:44 07/20/18 06:24 Albuterol/ Ipratropium (Albuterol/ Ipratropium) 3 ml Q4H PRN HHN Shortness of Breath 07/19/18 15:45 07/24/18 15:44 Albuterol/ Ipratropium (Albuterol/ Ipratropium) 3 ml Q6HRT HHN 07/20/18 13:00 07/25/18 12:59 07/23/18 07:10 Azithromycin (Zithromax) 250 mg DAILY ORAL 07/21/18 09:00 07/25/18 08:59 07/22/18 08:47 Budesonide (Pulmicort) 0.25 mg Q12HRT HHN 07/20/18 22:00 08/19/18 21:59 07/23/18 07:10 Ceftriaxone Sodium 1 gm/ Dextrose 55 ml @ 110 mls/hr Q24H IVPB 07/20/18 09:00 07/25/18 08:59 07/22/18 08:47 Dextrose (Dextrose 50%) 25 ml Q1H PRN IV Hypoglycemia 07/19/18 15:45 08/18/18 15:44 Dextrose (Dextrose 50%) 50 ml Q1H PRN IV Hypoglycemia 07/19/18 16:00 08/18/18 15:59 Heparin Sodium (Porcine) (Heparin 5000 units/ml) 5,000 units EVERY 12 HOURS SUBQ 07/19/18 21:00 08/18/18 20:59 07/21/18 08:23 Lorazepam (Ativan 2mg/ml 1ml) 2 mg Q2H PRN IV For Anxiety 07/19/18 15:45 07/26/18 15:44 Morphine Sulfate (Morphine Sulfate) 4 mg Q4H PRN IVP Severe Pain (Pain Scale 7-10) 07/19/18 15:45 07/26/18 15:44 07/20/18 17:42 Ondansetron HCl (Zofran) 4 mg Q6H PRN IVP Nausea & Vomiting 07/19/18 15:45 08/18/18 15:44 Polyethylene Glycol (Miralax) 17 gm DAILYPRN PRN ORAL Constipation 07/21/18 16:15 08/20/18 16:14 Promethazine HCl/ Codeine (Phenergan with Codeine) 5 ml Q6H PRN ORAL For Cough 07/20/18 11:45 08/19/18 11:44 Sodium Chloride 1,000 ml @ 50 mls/hr Q20H IV 07/19/18 15:42 08/18/18 15:41 07/22/18 12:53 Rodo Adkins MD Jul 23, 2018 08:57
[2018-07-23] MEDS: Azithromycin 250mg tab ORAL SCH (09:00)
[2018-07-23] MEDS: cefTRIAXone 1 GM in D5W 55 ML IVPB SCH (09:00)
[2018-07-23] MEDS: Heparin 5000 units/ml inj SUBQ SCH ×2 (09:00→20:32)
--- NOTE | 2018-07-23 09:43 | Pre-Procedure Note/Attestation ---
Pre-Procedure Note/Attestation Complete Prior to Procedure Planned Procedure: not applicable Procedure Narrative: US guided liver biopsy Indications for Procedure Pre-Operative Diagnosis: liver masses Attestation I attest that I discussed the nature of the procedure; its benefits; risks and complications; and alternatives (and the risks and benefits of such alternatives ), prior to the procedure, with the patient (or the patient's legal insurance healthcare representative). I attest that, if there was a reasonable possibility of needing a blood transfusion, the patient (or the patient's legal insurance healthcare representative) was given the [facility] standardized written summary, pursuant to the Ignacio Vandergrift Blood Safety Act ([place] Health and Safety Code # 1645, as amended). I attest that I re-evaluated the patient just prior to the surgery and that there has been no change in the patient's H&P, except as documented below: Arvind Byrnes MD Jul 23, 2018 09:43
--- NOTE | 2018-07-23 09:47 | Brief Operative Note ---
Immediate Post Operative Note Operative Note Pre-op Diagnosis: liver masses Procedure: US guided liver biopsy Post-op Diagnosis: same as pre-op Findings: consistent w/pre-op dx studies Surgeon: Agus BYRNES Anesthesia: local Specimen: yes - 3 18 G cores--sent for histology and micro Complications: none Condition: stable Fluids: none Implant(s) used?: No Arvind Byrnes MD Jul 23, 2018 09:47
--- NOTE | 2018-07-23 10:22 | Diagnostic Imaging Report ---
Indication: Status post liver biopsy requiring intercostal approach risking possible pneumothorax Technique: One view of the chest Comparison: 07/19/2018 Findings: Right lung and pleural space are clear. No evidence of pneumothorax. Extensive left lung opacity, previously reported, is again demonstrated and unchanged Impression: No evidence of postbiopsy pneumothorax Stable extensive left lung opacity, as described
[2018-07-23 12:00] VITALS: BP 127/82
--- NOTE | 2018-07-23 12:48 | General Progress Note ---
Assessment/Plan Problem List: (1) Lung mass ICD Codes: R91.8 - Other nonspecific abnormal finding of lung field SNOMED: 590455286 (2) Anemia ICD Codes: D64.9 - Anemia, unspecified SNOMED: 409995589 (3) SOB (shortness of breath) ICD Codes: R06.02 - Shortness of breath SNOMED: 127793319 (4) Weak ICD Codes: R53.1 - Weakness SNOMED: 65489101 (5) Hemoptysis ICD Codes: R04.2 - Hemoptysis SNOMED: 01642835 (6) Atelectasis ICD Codes: J98.11 - Atelectasis SNOMED: 94387383 (7) Dyspnea ICD Codes: R06.00 - Dyspnea, unspecified SNOMED: 369171990 Status: stable, progressing Assessment/Plan o2 pulm tx diet f/u cbc bmp am heme pulm f/u dc plan pending heme pulm clear Subjective Constitutional: Reports: weakness Allergies: Coded Allergies: No Known Allergies (Unverified , 07/19/18) All Systems: reviewed and negative except above Subjective calm in bed s/p lung biopsy Objective Last 24 Hour Vital Signs Date Time Temp Pulse Resp B/P (MAP) Pulse Ox O2 Delivery O2 Flow Rate FiO2 07/23/18 09:00 Room Air 07/23/18 08:59 Room Air 07/23/18 08:59 Room Air 07/23/18 08:18 Room Air 07/23/18 08:00 98.1 93 18 130/74 (92) 96 98.1 07/23/18 07:20 78 16 99 Room Air 07/23/18 07:05 71 18 98 Room Air 07/23/18 04:00 98.2 74 17 117/73 (88) 97 98.2 07/23/18 01:01 Room Air 21 07/23/18 01:01 Room Air 21 07/23/18 00:00 98.3 95 18 123/74 (90) 98 98.3 07/22/18 21:21 Room Air 21 07/22/18 21:21 Room Air 21 07/22/18 21:00 Room Air 07/22/18 20:00 98.1 93 18 130/74 (92) 96 98.1 07/22/18 19:15 87 16 99 Room Air 21 07/22/18 19:10 84 16 97 Room Air 21 07/22/18 13:00 Room Air 21 07/22/18 13:00 Room Air 21 Intake and Output 07/22/18 07/23/18 19:00 07:00 Intake Total 985 ml 600 ml Balance 985 ml 600 ml Intake Oral 480 ml IV Total 505 ml 600 ml # Voids 2 Laboratory Tests 07/23/18 05:40: White Blood Count 8.7, Red Blood Count 3.77L, Hemoglobin 9.0L, Hematocrit 29.1L , Mean Corpuscular Volume 77L, Mean Corpuscular Hemoglobin 23.9L, Mean Corpuscular Hemoglobin Concent 31.1L, Red Cell Distribution Width 13.6, Platelet Count 485H, Mean Platelet Volume 5.2L, Neutrophils (%) (Auto) 69.3, Lymphocytes (%) (Auto) 12.4L, Monocytes (%) (Auto) 11.1H, Eosinophils (%) (Auto ) 6.2H, Basophils (%) (Auto) 1.0, Sodium Level 138, Potassium Level 5.1, Chloride Level 102, Carbon Dioxide Level 31, Anion Gap 5, Blood Urea Nitrogen 8 , Creatinine 0.7, Estimat Glomerular Filtration Rate > 60, Glucose Level 89, Calcium Level 9.4 Height (Feet): 5 Height (Inches): 8.00 Weight (Pounds): 139 General Appearance: alert EENT: normal ENT inspection Neck: normal alignment Cardiovascular: normal peripheral pulses, normal rate, regular rhythm Respiratory/Chest: chest wall non-tender, lungs clear, normal breath sounds Abdomen: normal bowel sounds, non tender, soft Extremities: normal inspection Edema: no edema noted Arm (L), no edema noted Arm (R), no edema noted Leg (L), no edema noted Leg (R), no edema noted Pedal (L), no edema noted Pedal (R), no edema noted Generalized Neurologic: responsive, motor weakness Skin: normal pigmentation, warm/dry Martín Vera DO Jul 23, 2018 12:48
--- NOTE | 2018-07-23 14:19 | Pulmonology Progress Note ---
Assessment/Plan Problems: (1) Metastatic cancer (2) Hemoptysis (3) Lung mass Assessment/Plan liver biopsy today symptomatic treatment oncology follow up awaiting biopsy results Subjective ROS Limited/Unobtainable: No Constitutional: Reports: no symptoms HEENT: Repors: no symptoms Respiratory: Reports: no symptoms Allergies: Coded Allergies: No Known Allergies (Unverified , 07/19/18) Objective Last 24 Hour Vital Signs Date Time Temp Pulse Resp B/P (MAP) Pulse Ox O2 Delivery O2 Flow Rate FiO2 07/23/18 13:50 70 18 98 Room Air 21 07/23/18 12:00 97.0 73 21 127/82 (97) 97 97.0 07/23/18 09:00 Room Air 07/23/18 08:59 Room Air 07/23/18 08:59 Room Air 07/23/18 08:18 Room Air 07/23/18 08:00 98.1 93 18 130/74 (92) 96 98.1 07/23/18 07:20 78 16 99 Room Air 21 07/23/18 07:05 71 18 98 Room Air 21 07/23/18 04:00 98.2 74 17 117/73 (88) 97 98.2 07/23/18 01:01 Room Air 21 07/23/18 01:01 Room Air 21 07/23/18 00:00 98.3 95 18 123/74 (90) 98 98.3 07/22/18 21:21 Room Air 21 07/22/18 21:21 Room Air 21 07/22/18 21:00 Room Air 07/22/18 20:00 98.1 93 18 130/74 (92) 96 98.1 07/22/18 19:15 87 16 99 Room Air 21 07/22/18 19:10 84 16 97 Room Air 21 Intake and Output 07/22/18 07/23/18 19:00 07:00 Intake Total 985 ml 600 ml Balance 985 ml 600 ml Intake Oral 480 ml IV Total 505 ml 600 ml # Voids 2 General Appearance: WD/WN HEENT: normocephalic, atraumatic, PERRL Respiratory/Chest: chest wall non-tender, lungs clear Breasts: no masses Cardiovascular: normal peripheral pulses Abdomen: normal bowel sounds, no organomegaly Genitourinary: normal external genitalia Extremities: no clubbing Skin: no rash Microbiology Date/Time Source Procedure Growth Status 07/21/18 13:37 Sputum Expectorated Gram Stain - Final Complete 07/21/18 13:37 Sputum Expectorated Sputum Culture - Final NORMAL UPPER RESPIRATORY STEVE PRESENT Complete Laboratory Tests 07/23/18 05:40: White Blood Count 8.7, Red Blood Count 3.77L, Hemoglobin 9.0L, Hematocrit 29.1L , Mean Corpuscular Volume 77L, Mean Corpuscular Hemoglobin 23.9L, Mean Corpuscular Hemoglobin Concent 31.1L, Red Cell Distribution Width 13.6, Platelet Count 485H, Mean Platelet Volume 5.2L, Neutrophils (%) (Auto) 69.3, Lymphocytes (%) (Auto) 12.4L, Monocytes (%) (Auto) 11.1H, Eosinophils (%) (Auto ) 6.2H, Basophils (%) (Auto) 1.0, Sodium Level 138, Potassium Level 5.1, Chloride Level 102, Carbon Dioxide Level 31, Anion Gap 5, Blood Urea Nitrogen 8 , Creatinine 0.7, Estimat Glomerular Filtration Rate > 60, Glucose Level 89, Calcium Level 9.4 Current Medications Medications (Trade) Dose Ordered Sig/Madelyn Route PRN Reason Start Time Stop Time Status Last Admin Dose Admin Acetaminophen (Tylenol) 650 mg Q4H PRN ORAL FEVER 07/19/18 15:45 08/18/18 15:44 07/20/18 06:24 Albuterol/ Ipratropium (Albuterol/ Ipratropium) 3 ml Q4H PRN HHN Shortness of Breath 07/19/18 15:45 07/24/18 15:44 Albuterol/ Ipratropium (Albuterol/ Ipratropium) 3 ml Q6HRT N 07/20/18 13:00 07/25/18 12:59 07/23/18 14:09 Azithromycin (Zithromax) 250 mg DAILY ORAL 07/21/18 09:00 07/25/18 10:00 07/22/18 08:47 Budesonide (Pulmicort) 0.25 mg Q12HRT HHN 07/20/18 22:00 08/19/18 21:59 07/23/18 07:10 Ceftriaxone Sodium 1 gm/ Dextrose 55 ml @ 110 mls/hr Q24H IVPB 07/20/18 09:00 07/25/18 10:00 07/22/18 08:47 Dextrose (Dextrose 50%) 25 ml Q1H PRN IV Hypoglycemia 07/19/18 15:45 08/18/18 15:44 Dextrose (Dextrose 50%) 50 ml Q1H PRN IV Hypoglycemia 07/19/18 16:00 08/18/18 15:59 Heparin Sodium (Porcine) (Heparin 5000 units/ml) 5,000 units EVERY 12 HOURS SUBQ 07/19/18 21:00 08/18/18 20:59 07/21/18 08:23 Lorazepam (Ativan 2mg/ml 1ml) 2 mg Q2H PRN IV For Anxiety 07/19/18 15:45 07/26/18 15:44 Morphine Sulfate (Morphine Sulfate) 4 mg Q4H PRN IVP Severe Pain (Pain Scale 7-10) 07/19/18 15:45 07/26/18 15:44 07/20/18 17:42 Ondansetron HCl (Zofran) 4 mg Q6H PRN IVP Nausea & Vomiting 07/19/18 15:45 08/18/18 15:44 Polyethylene Glycol (Miralax) 17 gm DAILYPRN PRN ORAL Constipation 07/21/18 16:15 08/20/18 16:14 Promethazine HCl/ Codeine (Phenergan with Codeine) 5 ml Q6H PRN ORAL For Cough 07/20/18 11:45 08/19/18 11:44 Sodium Chloride 1,000 ml @ 50 mls/hr Q20H IV 07/19/18 15:42 08/18/18 15:41 07/22/18 12:53 Miguel Winston MD Jul 23, 2018 14:19
[2018-07-23 16:00] VITALS: BP 113/75
[2018-07-23] MEDS ORDERED: 1/2 NS 1000ml IV ONE (16:32)
[2018-07-23 20:00] VITALS: BP 136/80
[2018-07-24] VITALS: BP 126/84
[2018-07-24] MEDS: Albuterol/Ipratropium 3ml neb HHN SCH ×3 (01:00→13:00)
[2018-07-24 04:00] VITALS: BP 120/77
[2018-07-24 06:33] LABS: BASOPHILS % (AUTO) 0.9 % (0.0-2.0); EOSINOPHILS % (AUTO) 5.8 % (0.0-3.0); HEMATOCRIT 30.5 % (37.0-47.0); HEMOGLOBIN 9.4 G/DL (12.0-16.0); LYMPHOCYTES % (AUTO) 14.8 % (20.0-45.0); MEAN CORPUSCULAR VOLUME 77 FL (80-99); NEUTROPHILS % (AUTO) 68.5 % (45.0-75.0); PLATELET COUNT 484 K/UL (150-450); RED BLOOD COUNT 3.98 M/UL (4.20-5.40); RED CELL DISTRIBUTION WIDTH 13.7 % (11.6-14.8); WHITE BLOOD COUNT 7.6 K/UL (4.8-10.8)
[2018-07-24 06:45] LABS: ANION GAP 7 mmol/L (5-15); BLOOD UREA NITROGEN 10 mg/dL (7-18); CALCIUM 9.3 MG/DL (8.5-10.1); CARBON DIOXIDE 29 MMOL/L (21-32); CHLORIDE 102 MMOL/L (98-107); CREATININE 0.7 MG/DL (0.55-1.30); POTASSIUM 4.7 MMOL/L (3.5-5.1); SODIUM 138 MMOL/L (136-145)
--- NOTE | 2018-07-24 08:13 | General Progress Note ---
Assessment/Plan Assessment/Plan # Left perihilar lung mass, probably malignant with evidence of liver and adrenal gland metastasis, most likely is Stage IV Lung cancer in a young woman with no major risk factors, is pending evaluation as per below. CEA 25, CA 19.9 is 220!! --> obtained a biopsy of the liver mass --> RESULTS ARE STILL PENDING --> outpatient CT brain as well as PET/CT to evaluate spread before any further treatment --> tumor markers have been ordered and results reviewed --> depended on results of the mass biopsy, would recommend either conventional chemo if proven lung ca, or immunotherapy if is a candidate --> appreciate pulmonary recs ==> PATHOLOGY NEEDS TO BE RESULTED FIRST BEFORE ANY FURTHER RECS # Anemia of chronic disease -- panel has been reviewed --> workup has been reviewed as well, ferritin 414 --> hgb goal >7 # Possible obstructive pneumonia --> s/p abx # Pleuritic chest pain # Asthma # Positive D-dimer --> likely related to malignancy Greatly appreciate consultation. Subjective Constitutional: Denies: no symptoms, chills, diaphoresis, fever, malaise, weakness, other HEENT: Denies: no symptoms, eye pain, blurred vision, tearing, double vision, ear pain, ear discharge, nose pain, nose congestion, throat pain, throat swelling, mouth pain, mouth swelling, other Cardiovascular: Denies: no symptoms, chest pain, edema, irregular heart rate, lightheadedness, palpitations, syncope, other Respiratory: Denies: no symptoms, cough, orthopnea, shortness of breath, SOB with excertion, SOB at rest, sputum, stridor, wheezing, other Gastrointestinal/Abdominal: Denies: no symptoms, abdomen distended, abdominal pain, black stools, tarry stools, blood in stool, constipated, diarrhea, difficulty swallowing, nausea, poor appetite, poor fluid intake, rectal bleeding , vomiting, other Genitourinary: Denies: no symptoms, burning, discharge, frequency, flank pain, hematuria, incontinence, pain, urgency, other Neurologic/Psychiatric: Denies: no symptoms, anxiety, depressed, emotional problems, headache, numbness, paresthesia, pre-existing deficit, seizure, tingling, tremors, weakness, other Endocrine: Denies: no symptoms, excessive sweating, flushing, intolerance to cold, intolerance to heat, increased hunger, increased thirst, increased urine, unexplained weight gain, unexplained weight loss, other Hematologic/Lymphatic: Denies: no symptoms, anemia, easy bleeding, easy bruising, other Allergies: Coded Allergies: No Known Allergies (Unverified , 07/19/18) Subjective sleeping in bed, discussed with her we are still awaiting results of the pathology Objective Last 24 Hour Vital Signs Date Time Temp Pulse Resp B/P (MAP) Pulse Ox O2 Delivery O2 Flow Rate FiO2 07/24/18 07:55 74 18 98 Room Air 21 07/24/18 04:00 98.1 79 20 120/77 (91) 98 98.1 07/24/18 01:00 Room Air 07/24/18 01:00 Room Air 07/24/18 00:00 98.4 97 20 126/84 (98) 100 98.4 07/23/18 22:00 Room Air 07/23/18 22:00 Room Air 07/23/18 21:00 Room Air 07/23/18 20:00 97.9 99 18 136/80 (98) 100 97.9 07/23/18 19:16 86 16 99 Room Air 21 07/23/18 19:02 84 18 97 Room Air 21 07/23/18 16:00 97.7 89 18 113/75 (88) 97 97.7 07/23/18 13:59 76 16 99 Room Air 21 07/23/18 13:50 70 18 98 Room Air 21 07/23/18 12:00 97.0 73 21 127/82 (97) 97 97.0 07/23/18 09:00 Room Air 07/23/18 08:59 Room Air 07/23/18 08:59 Room Air 07/23/18 08:18 Room Air Intake and Output 07/23/18 07/24/18 19:00 07:00 Intake Total 630 ml Balance 630 ml Intake Oral 480 ml IV Total 150 ml # Voids 3 Laboratory Tests 07/24/18 05:55: White Blood Count 7.6, Red Blood Count 3.98L, Hemoglobin 9.4L, Hematocrit 30.5L , Mean Corpuscular Volume 77L, Mean Corpuscular Hemoglobin 23.6L, Mean Corpuscular Hemoglobin Concent 30.9L, Red Cell Distribution Width 13.7, Platelet Count 484H, Mean Platelet Volume 5.0L, Neutrophils (%) (Auto) 68.5, Lymphocytes (%) (Auto) 14.8L, Monocytes (%) (Auto) 10.0, Eosinophils (%) (Auto) 5.8H, Basophils (%) (Auto) 0.9, Sodium Level 138, Potassium Level 4.7, Chloride Level 102, Carbon Dioxide Level 29, Anion Gap 7, Blood Urea Nitrogen 10, Creatinine 0.7, Estimat Glomerular Filtration Rate > 60, Glucose Level 104, Calcium Level 9.3 Height (Feet): 5 Height (Inches): 8.00 Weight (Pounds): 139 General Appearance: no apparent distress EENT: normal ENT inspection Neck: normal inspection Cardiovascular: regular rhythm Respiratory/Chest: normal breath sounds Abdomen: no organomegaly Extremities: non-tender Edema: 1+ Leg (L), 1+ Leg (R) Edema: mild edema Neurologic: alert Laron Delgado MD Jul 24, 2018 08:13
[2018-07-24 08:15] VITALS: BP 122/80
--- NOTE | 2018-07-24 08:43 | Infectious Diseases Prog Note ---
Assessment/Plan Assessment/Plan Lung Nodules and consolidation Most probably Cancer. May have some component of post obstructive PNA but not likely Findings no consistent with TB or other infection 07/19/18 CTA Chest - Suspicion of a central left perihilar pulmonary mass/ adenopathy with endobronchial invasion into the left mainstem bronchus, associated with collapse of the left uppe lobe bronchus, atelectasis and consolidation of the left upper lobe. Evidence of metastatic neoplasm with multiple lesions within the liver. Large right suprarenal mass probably metastatic disease to the right adrenal gland. Liver Bx 07/23 - Pend Hx of asthma Anemia PLAN: - Continue Azithromycin #4/5 and Ceftriaxone #4/5 for possible obstructive PNA - 07/20 Vancomycin #1 and Cefepime #1 - f/u Liver Bx - Monitor CBC and Temps - Supportive care We will continue to follow the patient during this hospitalization. Subjective Allergies: Coded Allergies: No Known Allergies (Unverified , 07/19/18) Subjective Liver mass Bx yesterday Afebrile Objective Vital Signs Last 24 Hour Vital Signs Date Time Temp Pulse Resp B/P (MAP) Pulse Ox O2 Delivery O2 Flow Rate FiO2 07/24/18 08:15 97.8 83 18 122/80 (94) 99 97.8 07/24/18 07:55 74 18 98 Room Air 07/24/18 04:00 98.1 79 20 120/77 (91) 98 98.1 07/24/18 01:00 Room Air 07/24/18 01:00 Room Air 07/24/18 00:00 98.4 97 20 126/84 (98) 100 98.4 07/23/18 22:00 Room Air 07/23/18 22:00 Room Air 07/23/18 21:00 Room Air 07/23/18 20:00 97.9 99 18 136/80 (98) 100 97.9 07/23/18 19:16 86 16 99 Room Air 21 07/23/18 19:02 84 18 97 Room Air 21 07/23/18 16:00 97.7 89 18 113/75 (88) 97 97.7 07/23/18 13:59 76 16 99 Room Air 21 07/23/18 13:50 70 18 98 Room Air 21 07/23/18 12:00 97.0 73 21 127/82 (97) 97 97.0 07/23/18 09:00 Room Air 07/23/18 08:59 Room Air 07/23/18 08:59 Room Air Height (Feet): 5 Height (Inches): 8.00 Weight (Pounds): 139 Objective Gen: NAD HEENT: NCAT, MMM, EOMI, NO scleral icterus LUNGS: CTAB, No W CARDS: RRR, S1, S2, No M/R/G ABD: Soft, NT, ND, No R/G, + BS Microbiology Date/Time Source Procedure Growth Status 07/21/18 13:37 Sputum Expectorated Gram Stain - Final Complete 07/21/18 13:37 Sputum Expectorated Sputum Culture - Final NORMAL UPPER RESPIRATORY STEVE PRESENT Complete Laboratory Tests Test 07/24/18 05:55 White Blood Count 7.6 K/UL (4.8-10.8) Red Blood Count 3.98 M/UL (4.20-5.40) L Hemoglobin 9.4 G/DL (12.0-16.0) L Hematocrit 30.5 % (37.0-47.0) L Mean Corpuscular Volume 77 FL (80-99) L Mean Corpuscular Hemoglobin 23.6 PG (27.0-31.0) L Mean Corpuscular Hemoglobin Concent 30.9 G/DL (32.0-36.0) L Red Cell Distribution Width 13.7 % (11.6-14.8) Platelet Count 484 K/UL (150-450) H Mean Platelet Volume 5.0 FL (6.5-10.1) L Neutrophils (%) (Auto) 68.5 % (45.0-75.0) Lymphocytes (%) (Auto) 14.8 % (20.0-45.0) L Monocytes (%) (Auto) 10.0 % (1.0-10.0) Eosinophils (%) (Auto) 5.8 % (0.0-3.0) H Basophils (%) (Auto) 0.9 % (0.0-2.0) Sodium Level 138 MMOL/L (136-145) Potassium Level 4.7 MMOL/L (3.5-5.1) Chloride Level 102 MMOL/L (98-107) Carbon Dioxide Level 29 MMOL/L (21-32) Anion Gap 7 mmol/L (5-15) Blood Urea Nitrogen 10 mg/dL (7-18) Creatinine 0.7 MG/DL (0.55-1.30) Estimat Glomerular Filtration Rate > 60 mL/min (>60) Glucose Level 104 MG/DL (74-106) Calcium Level 9.3 MG/DL (8.5-10.1) Current Medications Medications (Trade) Dose Ordered Sig/Madelyn Route PRN Reason Start Time Stop Time Status Last Admin Dose Admin Acetaminophen (Tylenol) 650 mg Q4H PRN ORAL FEVER 07/19/18 15:45 08/18/18 15:44 07/20/18 06:24 Albuterol/ Ipratropium (Albuterol/ Ipratropium) 3 ml Q4H PRN HHN Shortness of Breath 07/19/18 15:45 07/24/18 15:44 Albuterol/ Ipratropium (Albuterol/ Ipratropium) 3 ml Q6HRT N 07/20/18 13:00 07/25/18 12:59 07/24/18 07:57 Azithromycin (Zithromax) 250 mg DAILY ORAL 07/21/18 09:00 07/25/18 10:00 07/22/18 08:47 Budesonide (Pulmicort) 0.25 mg Q12HRT N 07/20/18 22:00 08/19/18 21:59 07/23/18 07:10 Ceftriaxone Sodium 1 gm/ Dextrose 55 ml @ 110 mls/hr Q24H IVPB 07/20/18 09:00 07/25/18 10:00 07/22/18 08:47 Dextrose (Dextrose 50%) 25 ml Q1H PRN IV Hypoglycemia 07/19/18 15:45 08/18/18 15:44 Dextrose (Dextrose 50%) 50 ml Q1H PRN IV Hypoglycemia 07/19/18 16:00 08/18/18 15:59 Heparin Sodium (Porcine) (Heparin 5000 units/ml) 5,000 units EVERY 12 HOURS SUBQ 07/19/18 21:00 08/18/18 20:59 07/23/18 20:32 Lorazepam (Ativan 2mg/ml 1ml) 2 mg Q2H PRN IV For Anxiety 07/19/18 15:45 07/26/18 15:44 Morphine Sulfate (Morphine Sulfate) 4 mg Q4H PRN IVP Severe Pain (Pain Scale 7-10) 07/19/18 15:45 07/26/18 15:44 07/20/18 17:42 Ondansetron HCl (Zofran) 4 mg Q6H PRN IVP Nausea & Vomiting 07/19/18 15:45 08/18/18 15:44 Polyethylene Glycol (Miralax) 17 gm DAILYPRN PRN ORAL Constipation 07/21/18 16:15 08/20/18 16:14 Promethazine HCl/ Codeine (Phenergan with Codeine) 5 ml Q6H PRN ORAL For Cough 07/20/18 11:45 08/19/18 11:44 Sodium Chloride 1,000 ml @ 50 mls/hr Q20H IV 07/19/18 15:42 08/18/18 15:41 07/23/18 20:34 Rodo Adkins MD Jul 24, 2018 08:43
[2018-07-24] MEDS: Azithromycin 250mg tab ORAL SCH (09:36)
[2018-07-24] MEDS: cefTRIAXone 1 GM in D5W 55 ML IVPB SCH (09:37)
[2018-07-24] MEDS: Heparin 5000 units/ml inj SUBQ SCH (09:42)
[2018-07-24] MEDS: Budesonide HHN 0.25mg/2ml ud HHN SCH (10:00)
[2018-07-24 12:00] VITALS: BP 117/82
--- NOTE | 2018-07-24 13:16 | Pulmonology Progress Note ---
Assessment/Plan Problems: (1) Metastatic cancer (2) Hemoptysis (3) Lung mass Assessment/Plan liver biopsy pending symptomatic treatment oncology follow up awaiting biopsy results further outpatient work up Subjective ROS Limited/Unobtainable: No Constitutional: Reports: no symptoms HEENT: Repors: no symptoms Respiratory: Reports: no symptoms Allergies: Coded Allergies: No Known Allergies (Unverified , 07/19/18) Objective Last 24 Hour Vital Signs Date Time Temp Pulse Resp B/P (MAP) Pulse Ox O2 Delivery O2 Flow Rate FiO2 07/24/18 13:00 Room Air 07/24/18 13:00 Room Air 07/24/18 12:00 97.1 81 18 117/82 (94) 100 97.1 07/24/18 10:00 Room Air 21 07/24/18 10:00 Room Air 21 07/24/18 09:00 Room Air 07/24/18 08:15 97.8 83 18 122/80 (94) 99 97.8 07/24/18 08:03 81 16 99 Room Air 21 07/24/18 07:55 74 18 98 Room Air 21 07/24/18 04:00 98.1 79 20 120/77 (91) 98 98.1 07/24/18 01:00 Room Air 07/24/18 01:00 Room Air 07/24/18 00:00 98.4 97 20 126/84 (98) 100 98.4 07/23/18 22:00 Room Air 07/23/18 22:00 Room Air 07/23/18 21:00 Room Air 07/23/18 20:00 97.9 99 18 136/80 (98) 100 97.9 07/23/18 19:16 86 16 99 Room Air 21 07/23/18 19:02 84 18 97 Room Air 21 07/23/18 16:00 97.7 89 18 113/75 (88) 97 97.7 07/23/18 13:59 76 16 99 Room Air 21 07/23/18 13:50 70 18 98 Room Air 21 Intake and Output 07/23/18 07/24/18 19:00 07:00 Intake Total 630 ml Balance 630 ml Intake Oral 480 ml IV Total 150 ml # Voids 3 General Appearance: cachetic HEENT: normocephalic, atraumatic Respiratory/Chest: chest wall non-tender, lungs clear Breasts: no masses Cardiovascular: normal peripheral pulses, normal rate Abdomen: normal bowel sounds, soft, non tender, no organomegaly Genitourinary: normal external genitalia Extremities: no cyanosis Neurologic/Psychiatric: monogram and letter paster II-XII grossly normal Lymphatic: no neck adenopathy Microbiology Date/Time Source Procedure Growth Status 07/23/18 09:33 Other Gram Stain Pending Resulted 07/23/18 09:33 Other Aerobic Culture - Preliminary NO GROWTH Resulted 07/21/18 13:37 Sputum Expectorated Gram Stain - Final Complete 07/21/18 13:37 Sputum Expectorated Sputum Culture - Final NORMAL UPPER RESPIRATORY STEVE PRESENT Complete Laboratory Tests 07/24/18 05:55: White Blood Count 7.6, Red Blood Count 3.98L, Hemoglobin 9.4L, Hematocrit 30.5L , Mean Corpuscular Volume 77L, Mean Corpuscular Hemoglobin 23.6L, Mean Corpuscular Hemoglobin Concent 30.9L, Red Cell Distribution Width 13.7, Platelet Count 484H, Mean Platelet Volume 5.0L, Neutrophils (%) (Auto) 68.5, Lymphocytes (%) (Auto) 14.8L, Monocytes (%) (Auto) 10.0, Eosinophils (%) (Auto) 5.8H, Basophils (%) (Auto) 0.9, Sodium Level 138, Potassium Level 4.7, Chloride Level 102, Carbon Dioxide Level 29, Anion Gap 7, Blood Urea Nitrogen 10, Creatinine 0.7, Estimat Glomerular Filtration Rate > 60, Glucose Level 104, Calcium Level 9.3 Current Medications Medications (Trade) Dose Ordered Sig/Madelyn Route PRN Reason Start Time Stop Time Status Last Admin Dose Admin Acetaminophen (Tylenol) 650 mg Q4H PRN ORAL FEVER 07/19/18 15:45 08/18/18 15:44 07/20/18 06:24 Albuterol/ Ipratropium (Albuterol/ Ipratropium) 3 ml Q4H PRN HHN Shortness of Breath 07/19/18 15:45 07/24/18 15:44 Albuterol/ Ipratropium (Albuterol/ Ipratropium) 3 ml Q6HRT HHN 07/20/18 13:00 07/25/18 12:59 07/24/18 07:57 Azithromycin (Zithromax) 250 mg DAILY ORAL 07/21/18 09:00 07/25/18 10:00 07/24/18 09:36 Budesonide (Pulmicort) 0.25 mg Q12HRT HHN 07/20/18 22:00 08/19/18 21:59 07/23/18 07:10 Ceftriaxone Sodium 1 gm/ Dextrose 55 ml @ 110 mls/hr Q24H IVPB 07/20/18 09:00 07/25/18 10:00 07/24/18 09:37 Dextrose (Dextrose 50%) 25 ml Q1H PRN IV Hypoglycemia 07/19/18 15:45 08/18/18 15:44 Dextrose (Dextrose 50%) 50 ml Q1H PRN IV Hypoglycemia 07/19/18 16:00 08/18/18 15:59 Heparin Sodium (Porcine) (Heparin 5000 units/ml) 5,000 units EVERY 12 HOURS SUBQ 07/19/18 21:00 08/18/18 20:59 07/24/18 09:42 Lorazepam (Ativan 2mg/ml 1ml) 2 mg Q2H PRN IV For Anxiety 07/19/18 15:45 07/26/18 15:44 Morphine Sulfate (Morphine Sulfate) 4 mg Q4H PRN IVP Severe Pain (Pain Scale 7-10) 07/19/18 15:45 07/26/18 15:44 07/20/18 17:42 Ondansetron HCl (Zofran) 4 mg Q6H PRN IVP Nausea & Vomiting 07/19/18 15:45 08/18/18 15:44 Polyethylene Glycol (Miralax) 17 gm DAILYPRN PRN ORAL Constipation 07/21/18 16:15 08/20/18 16:14 Promethazine HCl/ Codeine (Phenergan with Codeine) 5 ml Q6H PRN ORAL For Cough 07/20/18 11:45 08/19/18 11:44 Sodium Chloride 1,000 ml @ 50 mls/hr Q20H IV 07/19/18 15:42 08/18/18 15:41 07/23/18 20:34 Miguel Winston MD Jul 24, 2018 13:16
[2018-07-24] MEDS ORDERED: ACETAMINOPHEN325 M1 ORAL (13:34)
--- NOTE | 2018-07-24 13:54 | General Progress Note ---
Assessment/Plan Problem List: (1) Lung mass ICD Codes: R91.8 - Other nonspecific abnormal finding of lung field SNOMED: 587933038 (2) Anemia ICD Codes: D64.9 - Anemia, unspecified SNOMED: 295953928 (3) SOB (shortness of breath) ICD Codes: R06.02 - Shortness of breath SNOMED: 593931797 (4) Weak ICD Codes: R53.1 - Weakness SNOMED: 68131045 (5) Hemoptysis ICD Codes: R04.2 - Hemoptysis SNOMED: 99322432 (6) Atelectasis ICD Codes: J98.11 - Atelectasis SNOMED: 56240601 (7) Dyspnea ICD Codes: R06.00 - Dyspnea, unspecified SNOMED: 795525515 Status: stable, progressing Assessment/Plan o2 pulm tx diet f/u heme pulm f/u dc home Subjective Constitutional: Reports: weakness Allergies: Coded Allergies: No Known Allergies (Unverified , 07/19/18) All Systems: reviewed and negative except above Subjective calm in bed s/p lung biopsy Objective Last 24 Hour Vital Signs Date Time Temp Pulse Resp B/P (MAP) Pulse Ox O2 Delivery O2 Flow Rate FiO2 07/24/18 13:00 Room Air 07/24/18 13:00 Room Air 07/24/18 12:00 97.1 81 18 117/82 (94) 100 97.1 07/24/18 10:00 Room Air 07/24/18 10:00 Room Air 21 07/24/18 09:00 Room Air 07/24/18 08:15 97.8 83 18 122/80 (94) 99 97.8 07/24/18 08:03 81 16 99 Room Air 21 07/24/18 07:55 74 18 98 Room Air 21 07/24/18 04:00 98.1 79 20 120/77 (91) 98 98.1 07/24/18 01:00 Room Air 07/24/18 01:00 Room Air 07/24/18 00:00 98.4 97 20 126/84 (98) 100 98.4 07/23/18 22:00 Room Air 07/23/18 22:00 Room Air 07/23/18 21:00 Room Air 07/23/18 20:00 97.9 99 18 136/80 (98) 100 97.9 07/23/18 19:16 86 16 99 Room Air 21 07/23/18 19:02 84 18 97 Room Air 21 07/23/18 16:00 97.7 89 18 113/75 (88) 97 97.7 07/23/18 13:59 76 16 99 Room Air 21 Intake and Output 07/23/18 07/24/18 19:00 07:00 Intake Total 630 ml Balance 630 ml Intake Oral 480 ml IV Total 150 ml # Voids 3 Laboratory Tests 07/24/18 05:55: White Blood Count 7.6, Red Blood Count 3.98L, Hemoglobin 9.4L, Hematocrit 30.5L , Mean Corpuscular Volume 77L, Mean Corpuscular Hemoglobin 23.6L, Mean Corpuscular Hemoglobin Concent 30.9L, Red Cell Distribution Width 13.7, Platelet Count 484H, Mean Platelet Volume 5.0L, Neutrophils (%) (Auto) 68.5, Lymphocytes (%) (Auto) 14.8L, Monocytes (%) (Auto) 10.0, Eosinophils (%) (Auto) 5.8H, Basophils (%) (Auto) 0.9, Sodium Level 138, Potassium Level 4.7, Chloride Level 102, Carbon Dioxide Level 29, Anion Gap 7, Blood Urea Nitrogen 10, Creatinine 0.7, Estimat Glomerular Filtration Rate > 60, Glucose Level 104, Calcium Level 9.3 Height (Feet): 5 Height (Inches): 8.00 Weight (Pounds): 139 General Appearance: alert EENT: normal ENT inspection Neck: normal alignment Cardiovascular: normal peripheral pulses, normal rate, regular rhythm Respiratory/Chest: chest wall non-tender, lungs clear, normal breath sounds Abdomen: normal bowel sounds, non tender, soft Extremities: normal inspection Edema: no edema noted Arm (L), no edema noted Arm (R), no edema noted Leg (L), no edema noted Leg (R), no edema noted Pedal (L), no edema noted Pedal (R), no edema noted Generalized Neurologic: responsive, motor weakness Skin: normal pigmentation, warm/dry Martín Vera DO Jul 24, 2018 13:54
--- NOTE | 2018-07-25 13:25 | Discharge Summary ---
Discharge Summary Discharge Summary _ DATE OF ADMISSION: 07/19/2018 DATE OF DISCHARGE: 07/24/2018 CONSULTANTS: Dr. Miguel Delgado BRIEF HOSPITAL COURSE: Patient is a 48-year-old female, who presented to ED with complaints of right- sided upper chest and back pain that has been ongoing, on and off, for the past 2 months. There has been increased cough as well. She was initially seen and diagnosed with possible asthma. She had more acute pain to the right upper chest area and with some pleurisy. She was told that she had a collapsed lung. She denied any fever or chills. Denied any vomiting or diarrhea. Cough had been on and off over the past several months. She denied any recent travel. Denied smoking history. On evaluation at ED, vital signs were stable. Blood work did not show leukocytoses, hemoglobin was 9.1, hematocrit 29.7. Troponin was negative. EKG revealed normal sinus rhythm with no acute ischemic changes. She was saturating 99% on room air. Chest x-ray done showed significant left-sided atelectasis. CT of the chest showed suspicion of a central left perihilar pulmonary mass/adenopathy with endobronchial invasion into the left mainstem bronchus, associated with collapse of the left upper lobe bronchus, atelectasis and consolidation of the left upper lobe. There was also evidence of metastatic neoplasm with multiple lesions within the liver. Large right suprarenal mass, probably metastatic disease to the right adrenal gland. She was then admitted for further workup. She was given pulmonary toilet. She was placed on bronchodilators. She was given inhaled budesonide. D-dimer was elevated to 4.26. Venous duplex of the lower extremity was negative for acute DVT. She was started empirically on antibiotics for possible obstructive pneumonia. Vancomycin and cefepime were discontinued. She was given azithromycin and ceftriaxone. Oncologist was consulted. Patient most probably with stage IV lung CA. CEA was 25, CA 199 is 220. On 07/23/2018, she underwent ultrasound guided liver biopsy. Pathology results still pending at time of dictation. Patient was cleared for discharge home while awaiting results of biopsy on the liver. She was recommended outpatient CT of the brain as well as PET/CT to evaluate spread. Depending on results of the biopsy, recommended either conventional chemotherapy or immunotherapy. Pathology needs to be resulted first before any further recommendations can be made. She was advised to follow -up with heme oncology. FINAL DIAGNOSES: Left perihilar lung mass, probably malignant with evidence of liver and adrenal gland metastasis, most likely is Stage IV Lung cancer Anemia of chronic disease Possible obstructive pneumonia Pleuritic chest pain Asthma Positive D-dimer possibly related to malignancy s/p liver biopsy DISPOSITION: Patient was discharged home. DISCHARGE MEDICATIONS: Refer to Discharge Medication List. DISCHARGE INSTRUCTIONS: Follow up with PCP and Dr. Laron Delgado in a week. Follow-up biopsy results. I have been assigned to dictate discharge summary on this account, and I was not involved in the patient's management. Melinda Sauceda NP Jul 25, 2018 13:25
== END 2018-07-24 15:14 | disposition home or self-care (01) | DRG 180 ==
LOC: EMR 13:10 → MERGE 13:10 → 4E 13:12 → EDBEDREQ 14:47
PROC: 0FB03ZX Excision of Liver, Percutaneous Approach, Diagnostic (ICD-10-PCS; principal; 2018-07-19)
DX: C34.92 Malignant neoplasm of unspecified part of left bronchus or lung (principal); J18.9 Pneumonia, unspecified organism; J98.11 Atelectasis; C78.7 Secondary malignant neoplasm of liver and intrahepatic bile duct; C79.71 Secondary malignant neoplasm of right adrenal gland; R04.2 Hemoptysis; D64.9 Anemia, unspecified
CPT/HCPCS: 36415; 71045; 71275; 76942; 80048; 80053; 80069; 81025; 82105; 82270; 82378; 82550; 82553; 82728; 83540; 83550; 84484; 85025; 85379; 85610; 86300; 86304; 87070; 87205; 93005; 93970; 94640; 94664; 99285; J7620